=== PATIENT | female | born 1995 | race Caucasian/White ===

== ENCOUNTER 2021-06-01 12:05 | Emergency (ER) | payer MEDICAID, SELFPAY ==
[2021-06-01 13:11] VITALS: BP 107/65; PULSE 79; RESP 18; TEMP 36.6; O2SAT 98; BMI 22.6
[2021-06-01 13:28] LABS: Appearance Urine CLEAR; Color Urine YELLOW; Glucose Urine UA NEG (NEG); Leukocyte Esterase Urine NEG (NEG); Nitrite Urine NEG (NEG); Urine Blood NEG (NEG); Urine Ketones NEG (NEG); Urine Protein NEG (NEG-TRACE)
--- NOTE | 2021-06-01 13:37 | ED.BACK ---
HPI - Back Pain/Injury General Chief Complaint: Back Pain/Injury Stated Complaint: Low Back Pain Time Seen by Provider: 06/01/21 13:37 Source: patient Mode of arrival: ambulatory Limitations: no limitations History of Present Illness HPI Narrative: Patient is a 26 year old female presenting to the emergency department today with low back pain. Patient states that she is a [employer] and starting the other night, she began to have low back pain. Patient states that she does not remember lifting or moving anything differently. Patient denies any radiation of the pain and describes it as a tight sensation. Patient denies any dizziness, lightheadedness, abdominal pain, nausea, vomiting, fever, chills, blurry vision, double vision, loss of vision, chest pain, difficulty breathing, shortness of breath, night sweats, pain with urination, increased urinary frequency, increased urinary urgency, blood in her urine or stool, syncope or a near syncopal episode, recent trauma or falls, bowel incontinence, bladder incontinence, bowel retention, bladder retention, or any other complaints at this time. MD elicited complaint: back pain Timing: intermittent Severity: mild Quality: dull Location: lumbar spine Radiation: none Exacerbating factors: movement Relieving factors: none Related Data Previous Rx's Medication Instructions Recorded cyclobenzaprine 10 mg tablet 10 mg PO TID PRN 7 Days #21 tab 06/01/21 Allergies Allergy/AdvReac Type Severity Reaction Status Date / Time No Known Allergies Allergy Unverified 12/26/19 16:14 Review of Systems Constitutional: Constitutional: Reports no additional constitutional complaints, Denies chills, Denies fever(s) and Denies night sweats Eyes: Eyes: Reports no additional eye complaints, Denies blurry vision, Denies change in vision, Denies diplopia, Denies eye discharge, Denies loss of vision and Denies eye pain ENT: Denies dizziness Cardiovascular: Cardiovascular: Reports no additional cardiovascular complaints, Denies chest pain, Denies lightheadedness, Denies Loss of Consciousness and Denies dyspnea Respiratory: Respiratory: Reports no additional respiratory complaints and Denies dyspnea Gastrointestinal: Gastrointestinal: Reports no additional gastrointestinal complaints, Denies abdominal pain, Denies melena, Denies hematochezia, Denies change in bowel habits and Denies change in stool character Genitourinary: Genitourinary: Denies hematuria, Denies urinary frequency, Denies dysuria, Denies urinary incontinence, Denies urinary hesitancy and Denies urinary urgency Musculoskeletal: Musculoskeletal: Reports no additional musculoskeletal complaints, Reports back pain, Denies numbness and Denies tingling Neurologic: Denies dizziness, Denies loss of vision, Denies numbness and Denies tingling Psychiatric: Psychiatric: Reports no additional psychiatric complaints Endocrine: Endocrine: Reports no additional endocrine complaints Hematologic/Lymphatic: Hematologic/Lymphatic: Reports no additional hematologic/lymphatic complaints Allergic/Immunologic: Allergic/Immunologic: Reports no additional allergic/immunologic complaints [facility] Past Medical History Attestation statement: The following information was validated with the patient. Source: old records reviewed Medical History No known health problems Social History Social History Advance Directives: No Advance Directives Information Provided: No Patient : No Physical Exam Vital Signs: Vital Signs: Last Vital Signs Temp 98 F 06/01/21 13:11 Pulse 79 06/01/21 13:11 Resp 18 06/01/21 13:11 BP 107/65 06/01/21 13:11 Pulse Ox 98 06/01/21 13:11 BMI result Body Mass Index 22.6 Const: General: cooperative, no acute distress, alert and awake Nutritional Appearance: well nourished Orientation/consciousness: patient oriented x3 Limitations: no limitations HENMT: Head: Yes normal to inspection and Yes atraumatic Ears: hearing grossly normal bilaterally and external ears normal General nose exam: Normal external nose present, no nasal discharge noted and no epistaxis Face and sinus: Yes normal facial exam, No abrasion and No laceration Mouth: Normal oral and palatal mucosa present, no drooling and no muffled voice Eyes: General: appearance normal, both eyes and all related structures Periorbital: periorbital findings normal Eyelids: Yes eyelids normal Conjunctivae: conjunctivae normal Pupils: Equal, round and reactive pupils present EOM: EOMs intact bilaterally Neck: Neck: Yes normal visual inspection, Yes full ROM and Yes no lymphadenopathy Chest: Chest palpation & inspection: normal inspection of the chest Resp: Effort & Inspection: normal respiratory effort and able to speak in complete sentences GI: Inspection: Yes normal to inspection Back/Spine/Pelvis: Thoracic/Lumbar Spine: thoracic and lumbar spine normal to inspection, thoraco-lumbar ROM normal and straight leg raise negative bilaterally Neuro: General: patient oriented x3 and moves all extremities Cranial nerves: Yes Equal, round and reactive pupils present Cognition (Neuro): normal cognition Motor exam (neuro): 5/5 motor strength present throughout Sensory Exam: Normal double simultaneous stimulation for sensation Coordination: [id number] test normal Extrem: General: Yes normal to inspection, Yes full ROM and Yes capillary refill normal Psych: Appearance: grossly normal Mental Status: mental status grossly normal Affect: normal affect Attitude: cooperative Thought process: Normal thought process present Thought content: Normal thought content present Insight: Good insight present (Psych) MDM - Back Pain/Injury MDM Narrative Medical decision making narrative: Patient is a 26 year old female presenting to the emergency department today with low back pain. Patient's physical exam was unremarkable. Patient's urine showed no acute process. I explained my physical exam findings as well as all test results to the patient. I answered all questions asked by the patient. Patient received PO Flexeril and IM Toradol which she stated helped her symptoms significantly. I stressed the importance of the patient taking her medication as prescribed. I stressed the importance of the patient following up with her primary care provider. I stressed the importance of the patient returning to the emergency department immediately if her symptoms were to worsen or if she were to develop any vaginal discharge, vaginal bleeding, numbness, tingling, dizziness, shortness of breath, difficulty breathing, chest pain, blurry vision, loss of vision, nausea, vomiting, abdominal pain, fever, chills, back pain, or any other complaints. Patient verbalized agreement and understanding with this treatment plan and discharge. Differential Diagnosis Differential diagnosis: Likely strain of lumbar region Medical Records Attestation: I reviewed the patient's medical records. Lab Data Attestation: I reviewed the patient's lab results. Labs: Lab Results 06/01/21 Range/Units 13:23 Urine Color YELLOW Urine Appearance CLEAR Urine pH 7.0 (5.0-8.0) Ur Specific [place] 1.010 (1.005-1.025) Urine Protein NEG (NEG-TRACE) MG/DL Urine Glucose (UA) NEG (NEG) MG/DL Urine Ketones NEG (NEG) MG/DL Urine Blood NEG (NEG) Urine Nitrite NEG (NEG) Ur Leukocyte Esterase NEG (NEG) Discharge Plan Discharge Clinical Impression: Strain of lumbar region Patient Disposition: Home, Self-Care Instructions: Low Back Strain (ED) Additional Instructions: Follow up with your primary care provider. Return to the emergency department immediately if your symptoms worsen or if you develop any dizziness, shortness of breath, difficulty breathing, chest pain, blurry vision, loss of vision, nausea, vomiting, abdominal pain, fever, chills, back pain, or any other complaints. Prescriptions: New cyclobenzaprine 10 mg tablet 10 mg PO TID PRN (Reason: muscle spasm) 7 Days Qty: 21 0RF Referrals: Nikko Dumas MD [Primary Care Provider] - 2 days Interventions: ED Discharge Assessment Last Done: 06/01/21 14:32 Print Language: Georgian
[2021-06-01] MEDS: Ketorolac Tromethamine 30 MG/ML VIAL IM (14:08)
[2021-06-01] MEDS: Cyclobenzaprine HCl 10 MG TABLET PO (14:09)
== END 2021-06-01 14:32 | disposition home or self-care (01) ==
PROVIDERS: Emergency Provider Emergency Medicine; PCP Internal Medicine
DX: S39.012A Strain of muscle, fascia and tendon of lower back, initial encounter (principal); X58.XXXA Exposure to other specified factors, initial encounter; Y93.9 Activity, unspecified; Y92.9 Unspecified place or not applicable; Y99.9 Unspecified external cause status
CPT/HCPCS: 81003; 96372; 99284; J1885

== ENCOUNTER 2022-01-21 21:57 | Emergency (ER) | payer MEDICAID, SELFPAY ==
[2022-01-21 22:04] VITALS: BP 132/66; PULSE 76; RESP 18; TEMP 36.6; O2SAT 98; BMI 22.6
[2022-01-21 22:33] LABS: MANUAL DIFF FLAG NO
[2022-01-21 22:36] LABS: Basophils Absolute Auto 0.1 X10*3/uL (0.0-0.2); Basophils Percent Auto 0.7 % (0-2); Eosinophils Absolute Auto 0.1 X10*3/uL (0.0-0.4); Eosinophils Percent Auto 1.2 % (0-4); Hematocrit 37.4 % (37.0-47.0); Hemoglobin 12.3 g/dl (12.0-16.0); Imm Gran Abs Auto 0.02 X10*3/uL (0.00-0.03); Imm Gran Pct Auto 0.3 % (0.0-0.4); Lymphocytes Absolute Auto 2.1 X10*3/uL (1.2-4.9); Lymphocytes Percent Auto 28.6 % (20-40); Mean Corpuscular HGB Conc 32.9 g/dl (31.0-35.0); Mean Corpuscular Hemoglobin 31.2 pg (27.0-33.0); Mean Corpuscular Volume 94.9 fL (80.0-98.0); Monocytes Absolute Auto 0.8 X10*3/uL (0.1-1.2); Monocytes Percent Auto 10.3 % (2-11); Neutrophils Absolute Auto 4.4 x10*3/uL (2.0-8.3); Neutrophils Percent Auto 58.9 % (45-73); Platelet Count 337 X10*3/uL (160-400); Red Blood Count 3.94 X10*6/uL (4.20-5.50); Red Cell Distribution Width 12.6 % (11.0-16.0); White Blood Count 7.5 X10*3/uL (4.8-10.8)
[2022-01-21 22:48] LABS: Appearance Urine Cloudy; Color Urine Yellow; Glucose Urine UA Negative (Negative); Leukocyte Esterase Urine Trace (Negative); Nitrite Urine Negative (Negative); PH 7.5 (5.0-9.0); UMIC TRIGGER UACC YES; Urine Blood Large (3+) (Negative); Urine Ketones Negative (Negative); Urine Protein Negative (Neg-Trace)
[2022-01-21 22:53] LABS: Alanine Aminotransferase 12 U/L (0-31); Albumin Level 4.7 g/dL (3.5-5.0); Alkaline Phosphatase 59 U/L (39-117); Anion Gap 13 (12-20); Aspartate Amino Transferase 16 U/L (5-31); Bilirubin Direct < 0.2 mg/dL (0.0-0.5); Bilirubin Total 0.3 mg/dL (0.0-1.0); Blood Urea Nitrogen 10 mg/dL (9-16); Calcium 9.5 mg/dL (8.4-10.2); Carbon Dioxide 26 mmol/L (22-29); Chloride 104 mmol/L (96-108); Creatinine Clr Calc Pharmacy 87.7; Estimated Glomerular Filt Rate > 60; Glucose Random 86 mg/dL (60-115); Potassium 4.2 mmol/L (3.3-5.1); Sodium 139 mmol/L (135-145); Total Protein 7.6 g/dL (6.5-8.0)
[2022-01-21 23:01] LABS: HCG Quantitative 738 mIU/mL
[2022-01-21 23:05] LABS: Bacteria Urine None Seen (None Seen); Hyaline Casts Urine 0-2 /LPF (0-2); UACC Culture Trigger YES
[2022-01-22 01:07] VITALS: BP 116/69; PULSE 73; RESP 18; TEMP 36.4; O2SAT 99
--- OUTSIDE RECORDS SUMMARY | 2022-01-22 01:24 | XMS_ITS | Continuity of Care Document ---
:1995 Author Organization [facility] Address [address] [place] [address]- Care Team Providers Name Role Phone Piter DELANEY, Nikko Brownlee Primary Care Physician Encounter [facility] Date(s): 08/10/21 - 09/09/[address] [address]- Allergies, Adverse Reactions, Alerts No Known Allergies Immunizations Given and Recorded Vaccine Date Status Refusal Reason SARS-CoV-2 mRNA (summer) vax 05/18/21 Given
--- OUTSIDE RECORDS SUMMARY | 2022-01-22 01:24 | XMS_ITS | Continuity of Care Document ---
:1995 Author Organization [facility] Address [address] [place] [address]- Care Team Providers Name Role Phone Piter DELANEY, Nikko Brownlee Primary Care Physician [phone] Encounter [facility] Date(s): 08/09/21 - 09/08/[address] [address] Attending Physician: Antonieta Helm Admitting Physician: Antonieta Helm Referring Physician: AdmtrAntonieta Allergies, Adverse Reactions, Alerts No Known Allergies Immunizations Given and Recorded Vaccine Date Status Refusal Reason SARS-CoV-2 mRNA ([id number]) vax 05/18/21 Given
--- OUTSIDE RECORDS SUMMARY | 2022-01-22 01:24 | XMS_ITS | Continuity of Care Document ---
:1995 Author Organization [facility] Address [address] [place] [address]- Care Team Providers Name Role Phone Piter DELANEY, Nikko Brownlee Primary Care Physician Encounter [facility] Date(s): 12/02/19 - 01/01/[address] [address]- [facility] Attending Physician: Antonieta Helm Admitting Physician: Antonieta Helm Referring Physician: Antonieta Helm
--- OUTSIDE RECORDS SUMMARY | 2022-01-22 01:24 | XMS_ITS | Continuity of Care Document ---
:1995 Author Organization [facility] Address [address] [place] [address]- Care Team Providers Name Role Phone Piter DELANEY, Nikko Brownlee Primary Care Physician Encounter [facility] Date(s): 07/21/21 - 09/08/[address] [address] Attending Physician: Not on Staff, Attending MD Allergies, Adverse Reactions, Alerts No Known Allergies Immunizations Given and Recorded Vaccine Date Status Refusal Reason SARS-CoV-2 mRNA (summer) vax 05/18/21 Given
--- OUTSIDE RECORDS SUMMARY | 2022-01-22 01:24 | XMS_ITS | Continuity of Care Document ---
:1995 Author Organization [facility] Address [address] [place] [address]- Care Team Providers Name Role Phone Piter DELANEY, Nikko Brownlee Primary Care Physician [phone] Encounter [facility] Date(s): 04/15/19 - 04/25/[address] [address]- [facility] Attending Physician: Antonieta Helm Admitting Physician: Antonieta Helm Referring Physician: Antonieta Helm Referring Physician: Joann Trammell
--- OUTSIDE RECORDS SUMMARY | 2022-01-22 01:25 | XMS_ITS | Continuity of Care Document ---
:1995 Author Organization [facility] Address [address] [place] [address]- Care Team Providers Name Role Phone Piter DELANEY, Nikko Brownlee Primary Care Physician Encounter [facility] Date(s): 06/03/21 - 10/01/[address] [address]- Attending Physician: Teri Shultz CNM Admitting Physician: Teri Shultz CNM Allergies, Adverse Reactions, Alerts No Known Allergies Immunizations Given and Recorded Vaccine Date Status Refusal Reason SARS-CoV-2 mRNA (summer) vax 05/18/21 Given
--- OUTSIDE RECORDS SUMMARY | 2022-01-22 01:25 | XMS_ITS | Continuity of Care Document ---
:1995 Author Organization [facility] ic Address [address] [place] [address]- Care Team Providers Name Role Phone Piter DELANEY, Nikko Brownlee Primary Care Physician Encounter [facility] Date(s): 06/11/19 - 06/21/[address] [address]- [facility] Attending Physician: Antonieta Helm Admitting Physician: Antonieta Helm Referring Physician: Antonieta Helm
--- OUTSIDE RECORDS SUMMARY | 2022-01-22 01:25 | XMS_ITS | Continuity of Care Document ---
:1995 Author Organization [facility] ic Address [address] [place] [address]- Care Team Providers Name Role Phone Piter DELANEY, Nikko Brownlee Primary Care Physician [phone] Encounter [facility] Date(s): 04/15/19 - 06/06/[address] [address]- [facility] Attending Physician: Not on Staff, Attending MD Referring Physician: Nikko Dumas MD
--- OUTSIDE RECORDS SUMMARY | 2022-01-22 01:25 | XMS_ITS | Continuity of Care Document ---
:1995 Author Organization [facility] Address [address] [place] [address]- Care Team Providers Name Role Phone Piter DELANEY, Nikko Brownlee Primary Care Physician Encounter [facility] Date(s): 07/20/21 - 08/19/[address] [address]- Allergies, Adverse Reactions, Alerts No Known Allergies Immunizations Given and Recorded Vaccine Date Status Refusal Reason SARS-CoV-2 mRNA (summer) vax 05/18/21 Given
--- OUTSIDE RECORDS SUMMARY | 2022-01-22 01:25 | XMS_ITS | Continuity of Care Document ---
:1995 Author Organization [facility] ic Address [address] [place] [address]- Care Team Providers Name Role Phone Piter DELANEY, Nikko Brownlee Primary Care Physician Encounter [facility] Date(s): 05/14/19 - 07/11/[address] [address]- [facility] Attending Physician: Not on Staff, Attending MD Referring Physician: Nikko Dumas MD
--- OUTSIDE RECORDS SUMMARY | 2022-01-22 01:25 | XMS_ITS | Continuity of Care Document ---
:1995 Author Organization [facility] Address [address] [place] [address]- Care Team Providers Name Role Phone Piter DELANEY, Nikko Brownlee Primary Care Physician Encounter [facility] Date(s): 06/10/21 - 08/18/[address] [address] Attending Physician: Not on Staff, Attending MD Allergies, Adverse Reactions, Alerts No Known Allergies Immunizations Given and Recorded Vaccine Date Status Refusal Reason SARS-CoV-2 mRNA (summer) vax 05/18/21 Given
--- OUTSIDE RECORDS SUMMARY | 2022-01-22 01:25 | XMS_ITS | Continuity of Care Document ---
:1995 Author Organization [facility] ic Address [address] [place] [address]- Care Team Providers Name Role Phone Piter DELANEY, Nikko Brownlee Primary Care Physician Encounter [facility] Date(s): 01/15/19 - 05/15/[address] [address]- [facility] Attending Physician: Not on Staff, Attending MD Referring Physician: Gt Gusman MD
--- OUTSIDE RECORDS SUMMARY | 2022-01-22 01:25 | XMS_ITS | Continuity of Care Document ---
:1995 Author Organization [facility] Address [address] [place] [address]- Care Team Providers Name Role Phone Piter DELANEY, Nikko Brownlee Primary Care Physician Encounter [facility] Date(s): 11/01/19 - 12/01/19 [facility] [address] [address]- [facility]
--- NOTE | 2022-01-22 01:30 | PC.NURSE ---
Pt aox4. VSS. Breath are even and unlabored. Abd soft and nontender. Normal skin tone. Reports intermittent vaginal bleeding and no bleeding at this time. Positive Clear Blue test two days ago.
--- NOTE | 2022-01-22 02:12 | ED.FEMALEGU ---
HPI - Female Genitourinary General Chief complaint: Vaginal Bleeding Stated complaint: Spotting, Time Seen by Provider: 01/22/22 02:11 Source: patient Mode of arrival: ambulatory Limitations: no limitations History of Present Illness HPI Narrative: Patient 1 found that she was 2 days ago had LMP 2 weeks ago and then started having spotting since then already made the appointment at [facility] comes here as still having spotting no blood clots no abdominal discomfort Related Data Previous Rx's Medication Instructions Recorded cyclobenzaprine 10 mg tablet 10 mg PO TID PRN muscle spasm 7 06/01/21 days #21 tabs Allergies Allergy/AdvReac Type Severity Reaction Status Date / Time No Known Allergies Allergy Verified 01/21/22 22:09 Review of Systems Review of Systems: Yes all other systems are reviewed and are negative [facility] Past Medical History Medical History No known health problems Social History Social History Patient Tobacco Use Status: Never used Tobacco Use of substances other than those prescribed or required for medical reasons: No Substance Use Type: Marijuana Advance Directives: No Advance Directives Information Provided: Yes Patient : Yes Physical Exam Vital Signs: Vital Signs: Last Vital Signs Temp 97.6 F 01/22/22 01:07 Pulse 73 01/22/22 01:07 Resp 18 01/22/22 01:07 BP 116/69 01/22/22 01:07 Pulse Ox 99 01/22/22 01:07 O2 Del Method 01/22/22 01:07 BMI result Body Mass Index 22.6 Appearance: Alert. Oriented X3. No acute distress. ENT: Pharynx normal. Oral Mucosa moist Neck: Normal inspection. Neck supple. CVS: Normal heart rate and rhythm. Pulses normal. Respiratory: No respiratory distress. Equal air entry bilateral, no wheezing/rales/rhonchi Abdomen: Soft and nontender. Bowel sounds are present, no mass palpable, no CVA tenderness Skin: Skin warm and dry. Normal skin color. Normal skin turgor. Extremities: No lower extremity edema. No calf tenderness Neuro: Oriented X 3. No motor deficit. No sensory deficit. MDM - Female Genitourinary MDM Narrative Medical decision making narrative: Patient hCG 738 no discomfort at this time no major bleeding. Unable to see IUP if it is less than 1000 and there is no indication for ultrasound as patient does not have any discomfort and bleeding is very mild. Patient is supposed to see [facility]. Patient advised to repeat HCG in 2 days Lab Data Attestation: I reviewed the patient's lab results. Result diagrams: 01/21/22 22:01/21/22 22:28 Labs: Lab Results 01/21/22 01/21/22 01/21/22 Range/Units 22:28 22: 22: WBC 7.5 (4.8-10.8) X10*3/uL RBC 3.94 L (4.20-5.50) X10*6/uL Hgb 12.3 (12.0-16.0) g/dl Hct 37.4 (37.0-47.0) % MCV 94.9 (80.0-98.0) fL MCH 31.2 (27.0-33.0) pg MCHC 32.9 (31.0-35.0) g/dl RDW 12.6 (11.0-16.0) % Plt Count 337 (160-400) X10*3/uL MPV 10.0 (9.4-12.3) fL Immature Gran % (Auto) 0.3 (0.0-0.4) % Neut % (Auto) 58.9 (45-73) % Lymph % (Auto) 28.6 (20-40) % Parmer % (Auto) 10.3 (2-11) % Eos % (Auto) 1.2 (0-4) % Baso % (Auto) 0.7 (0-2) % Lymph # (Auto) 2.1 (1.2-4.9) X10*3/uL Parmer # (Auto) 0.8 (0.1-1.2) X10*3/uL Eos # (Auto) 0.1 (0.0-0.4) X10*3/uL Baso # (Auto) 0.1 (0.0-0.2) X10*3/uL Abs Immat Gran (auto) 0.02 (0.00-0.03) X10*3/uL Absolute Neuts (auto) 4.4 (2.0-8.3) x10*3/uL Absolute Nucleated RBC 0.000 (0.0-0.012) X10*3/uL Nucleated RBC % (auto) 0.0 (0.0-0.2) /100WBC Sodium 139 (135-145) mmol/L Potassium 4.2 (3.3-5.1) mmol/L Chloride 104 (96-108) mmol/L Carbon Dioxide 26 (22-29) mmol/L Anion Gap 13 (12-20) BUN 10 (9-16) mg/dL Creatinine 0.72 (0.5-1.4) mg/dL Estim Creat Clear Calc 87.7 Estimated GFR > 60 Random Glucose 86 (60-115) mg/dL Calcium 9.5 (8.4-10.2) mg/dL Total Bilirubin 0.3 (0.0-1.0) mg/dL Direct Bilirubin < 0.2 (0.0-0.5) mg/dL AST 16 (5-31) U/L ALT 12 (0-31) U/L Alkaline Phosphatase 59 (39-117) U/L Total Protein 7.6 (6.5-8.0) g/dL Albumin 4.7 (3.5-5.0) g/dL Beta HCG, Quant 738 mIU/mL Urine Color Urine Appearance Urine pH (5.0-9.0) Ur Specific [place] (1.005-1.025) Urine Protein (Neg-Trace) mg/dL Urine Glucose (UA) (Negative) mg/dL Urine Ketones (Negative) mg/dL Urine Blood (Negative) Urine Nitrite (Negative) Ur Leukocyte Esterase (Negative) Urine RBC (0-2) /HPF Urine WBC (0-5) /HPF Ur Squamous Epith Cells (0-2) /HPF Urine Bacteria (None Seen) Hyaline Casts (0-2) /LPF Blood Type O Negative 01/21/22 Range/Units 22:41 WBC (4.8-10.8) X10*3/uL RBC (4.20-5.50) X10*6/uL Hgb (12.0-16.0) g/dl Hct (37.0-47.0) % MCV (80.0-98.0) fL MCH (27.0-33.0) pg MCHC (31.0-35.0) g/dl RDW (11.0-16.0) % Plt Count (160-400) X10*3/uL MPV (9.4-12.3) fL Immature Gran % (Auto) (0.0-0.4) % Neut % (Auto) (45-73) % Lymph % (Auto) (20-40) % [place] % (Auto) (2-11) % Eos % (Auto) (0-4) % Baso % (Auto) (0-2) % Lymph # (Auto) (1.2-4.9) X10*3/uL [place] # (Auto) (0.1-1.2) X10*3/uL Eos # (Auto) (0.0-0.4) X10*3/uL Baso # (Auto) (0.0-0.2) X10*3/uL Abs Immat Gran (auto) (0.00-0.03) X10*3/uL Absolute Neuts (auto) (2.0-8.3) x10*3/uL Absolute Nucleated RBC (0.0-0.012) X10*3/uL Nucleated RBC % (auto) (0.0-0.2) /100WBC Sodium (135-145) mmol/L Potassium (3.3-5.1) mmol/L Chloride (96-108) mmol/L Carbon Dioxide (22-29) mmol/L Anion Gap (12-20) BUN (9-16) mg/dL Creatinine (0.5-1.4) mg/dL Estim Creat Clear Calc Estimated GFR Random Glucose (60-115) mg/dL Calcium (8.4-10.2) mg/dL Total Bilirubin (0.0-1.0) mg/dL Direct Bilirubin (0.0-0.5) mg/dL AST (5-31) U/L ALT (0-31) U/L Alkaline Phosphatase (39-117) U/L Total Protein (6.5-8.0) g/dL Albumin (3.5-5.0) g/dL Beta HCG, Quant mIU/mL Urine Color Yellow Urine Appearance Cloudy Urine pH 7.5 (5.0-9.0) Ur Specific [place] 1.020 (1.005-1.025) Urine Protein Negative (Neg-Trace) mg/dL Urine Glucose (UA) Negative (Negative) mg/dL Urine Ketones Negative (Negative) mg/dL Urine Blood Large (3+) H (Negative) Urine Nitrite Negative (Negative) Ur Leukocyte Esterase Trace H (Negative) Urine RBC 3-5 H (0-2) /HPF Urine WBC 6-10 H (0-5) /HPF Ur Squamous Epith Cells 3-5 (0-2) /HPF Urine Bacteria None Seen (None Seen) Hyaline Casts 0-2 (0-2) /LPF Blood Type Discharge Plan Discharge Clinical Impression: Threatened Patient Disposition: Home, Self-Care Instructions: Threatened Miscarriage (ED) Additional Instructions: Your hCG count is 738 which should increase if normal Recheck blood in 2 days to check HCG level Report to the ER if increased vaginal bleeding Prescriptions: No Action cyclobenzaprine 10 mg tablet 10 mg PO TID PRN (Reason: muscle spasm) 7 Days Qty: 21 0RF Interventions: ED Discharge Assessment Last Done: 01/22/22 03:10 Discharge Date/Time: 01/22/22 03:10
--- NOTE | 2022-01-22 03:11 | PC.NURSE ---
Discharge instructions provided to pt. Pt verbalizes understanding.
== END 2022-01-22 03:10 | disposition home or self-care (01) ==
PROVIDERS: Emergency Medicine; Emergency Provider Internal Medicine; PCP Nurse Practitioner Primary Care
DX: O20.0 Threatened abortion (principal); Z3A.01 Less than 8 weeks gestation of pregnancy
CPT/HCPCS: 36415; 80048; 80076; 81001; 84702; 85025; 86900; 86901; 87086; 99283; 99284

== ENCOUNTER 2022-01-25 12:01 | Emergency (ER) | payer MEDICAID, SELFPAY ==
--- NOTE | ~2022-01-25 | US_ITS ---
EXAMINATION: US OBSTETRICAL ULTRASOUND CLINICAL INFORMATION: Vaginal bleeding, rule out miscarriage. Beta hCG 637 COMPARISON: None. LMP: Unknown. TECHNIQUE: Multiple 2-D grayscale and Doppler transabdominal ultrasound images of the abdomen were obtained. FINDINGS: Uterus: Anteverted/anteflexed measuring 8.8 x 4.1 x 5.1 cm. Endometrial stripe measures up to 2.8 cm with internal heterogeneous echogenic material filling the canal. No gestational sac is identified. Color Doppler showed no significant vascular flow. The cervix appears closed without abnormality. No significant free fluid in the cul-de-sac. Right ovary: 4.2 x 3.9 x 4.2 cm. An anechoic cyst measures 3.4 x 3.0 x 2.9 cm. Minimal adjacent anechoic fluid is seen. Color Doppler showed no abnormal vascular flow. Left ovary: 3.9 x 3.8 x 3.7 cm. A cyst with internal echoes measures 3.2 x 2.7 x 3.1 cm. Small adjacent anechoic fluid is seen. Color Doppler showed no abnormal vascular flow. Urinary bladder: Mild to moderately distended. No focal abnormality. US/US OB <= 14 weeks fetus IMPRESSION: 1. No intrauterine or extrauterine gestation identified. Increased thickening of the endometrium without definitive basilar components suggestive of possible hemorrhagic products without focal abnormality. No definitive retained products of conception. 2. Bilateral ovarian cysts are likely physiologic. Continued monitoring of beta-hCG levels is recommended. Short-term follow-up pelvic ultrasound is recommended as clinically indicated.
[2022-01-25 12:09] VITALS: BP 150/93; PULSE 85; RESP 16; TEMP 36.6; O2SAT 100; BMI 22.1
[2022-01-25 12:37] LABS: MANUAL DIFF FLAG NO
[2022-01-25 12:48] LABS: Basophils Percent Auto 0.5 % (0-2); Eosinophils Absolute Auto 0.1 X10*3/uL (0.0-0.4); Eosinophils Percent Auto 0.8 % (0-4); Hematocrit 35.9 % (37.0-47.0); Hemoglobin 12.6 g/dl (12.0-16.0); Imm Gran Abs Auto 0.02 X10*3/uL (0.00-0.03); Imm Gran Pct Auto 0.3 % (0.0-0.4); Lymphocytes Absolute Auto 1.8 X10*3/uL (1.2-4.9); Lymphocytes Percent Auto 27.5 % (20-40); Mean Corpuscular HGB Conc 35.1 g/dl (31.0-35.0); Mean Corpuscular Hemoglobin 33.4 pg (27.0-33.0); Mean Corpuscular Volume 95.2 fL (80.0-98.0); Mean Platelet Volume 10.5 fL (9.4-12.3); Monocytes Absolute Auto 0.7 X10*3/uL (0.1-1.2); Monocytes Percent Auto 9.9 % (2-11); Platelet Count 299 X10*3/uL (160-400); Red Blood Count 3.77 X10*6/uL (4.20-5.50); Red Cell Distribution Width 12.9 % (11.0-16.0); White Blood Count 6.6 X10*3/uL (4.8-10.8)
[2022-01-25 13:05] LABS: HCG Quantitative 637 mIU/mL
--- NOTE | 2022-01-25 14:41 | ED.RECABL ---
HPI - Recheck/Abnormal Lab/Rx General Chief Complaint: Recheck/Abnormal Lab/Rx Stated Complaint: Needs HCG levels checked Time Seen by Provider: 01/25/22 14:21 Source: patient Mode of arrival: ambulatory Limitations: no limitations History of Present Illness HPI narrative: This is a 26 year old female A0 presenting to the emergency department for follow-up after having hCG levels done here in being told that she may be having a threatened . Reports light vaginal bleeding dark red w/o clots going through 1-2 pads/day. Patient was seen here 01/22/2022 and reported that she was having vaginal spotting. Patient reports her last menstrual period was 2 weeks ago. Patient's last HCG was 738. Patient tells me that she did not have an ultrasound at that time. Patient denies fevers, chills, chest pain, shortness of breath nausea, vomiting, abdominal pain headache, dizziness, weakness. Related Data Previous Rx's Medication Instructions Recorded cyclobenzaprine 10 mg tablet 10 mg PO TID PRN muscle spasm 7 06/01/21 days #21 tabs Allergies Allergy/AdvReac Type Severity Reaction Status Date / Time No Known Allergies Allergy Verified 01/21/22 22:09 Review of Systems Review of Systems: Constitutional : No Weight loss, No Fever, No Chills, No Fatigue, No Malaise ENT/Mouth : No sore throat, No Rhinorrhea Eyes: No Eye Pain, No Swelling, No Redness Cardiovascular : No Chest Pain, No SOB, No Dyspnea on Exertion, No Orthopnea, No Edema, No Palpitations Respiratory : No Cough, No Sputum, No Wheezing Gastrointestinal : No Nausea, No Vomiting, No Diarrhea, No Constipation, No abdominal Pain, No Hematochezia, No Melena Genitourinary : No Dysuria, No Urinary Frequency, No Hematuria, Musculoskeletal : No joint pain, No Myalgias, No Joint Swelling Skin : No Skin Lesions, No rash Neuro : No Weakness, No Numbness, No Dizziness, No Headache Psych : No Anxiety/Panic, No Depression All other systems reviewed and are negative Yes all other systems are reviewed and are negative [facility] Past Medical History Attestation statement: The following information was validated with the patient. Source: old records reviewed and nursing notes reviewed Medical History No known health problems Social History Social History Patient Tobacco Use Status: Never used Tobacco Substance Use Type: Marijuana Advance Directives: No Physical Exam Vital Signs: Vital Signs: Last Vital Signs Temp 98.1 F 01/25/22 16:08 Pulse 71 01/25/22 16:08 Resp 18 01/25/22 16:08 BP 139/81 01/25/22 16:08 Pulse Ox 97 01/25/22 16:08 O2 Del Method 01/25/22 16:08 BMI result Body Mass Index 22.1 Vital signs stable Appearance: Alert.? Oriented X3.? No acute distress.? Head: Normocephalic, atraumatic, no step-offs or deformities Eyes: Pupils equal, round and reactive to light.? ENT: Pharynx normal.? Neck: Normal inspection.? Neck supple.? CVS: Normal heart rate and rhythm.? Pulses normal.? Respiratory: No respiratory distress.? Breath sounds normal.? Abdomen: Soft and nontender.? Skin: Skin warm and dry.? Normal skin color.? Normal skin turgor.? Extremities: No lower extremity edema.? No calf ttp. 5/5 strength to bilateral upper and lower extremities Neuro: Oriented X 3.? No motor deficit.? No sensory deficit. CN 2-12 intact Course Reevaluation(s) Reevaluation #1: Patient has not changed her pad while here. CBC appears to be around patients baseline. Chemistry no acute findings. HCG down trending 637. Pelvic us pending. 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 TT Dr. Singh Time: 15:40 Reevaluation #2: Ultrasound without an intrauterine or extrauterine gestation. Increased thickening of the endometrium without definitive basilar components suggestive of possible hemorrhagic products without focal abnormality. I did perform a pelvic exam on this patient it shows scant blood within the vaginal canal, closed cervical os, nonpainful exam, patient tolerated procedure well. Negative chandelier sign. No pain with palpation. Dr. Singh be aware, recommend strict return precautions, RhoGAM if antibody screen is negative. Recommends as a be/ectopic warnings. If ultrasound is normal hCG in 48 hours and follow up in the office. Time: 16:00 Reevaluation #3: Patient blood type O negative therefore RhoGAM will be given at this time. Suspected miscarriage. Will have patient get repeat hCG in 48 hours and follow-up with OBGYN. Patient tells me now that she does not think she actually has a OBGYN therefore I will provide her with information for Dr. Singh. I did have a long conversation with patient explained to her that she is likely miscarrying, answered all questions, I took the time to outlined worrisome signs and symptoms and when to return, these were outlined on her discharge. At this time I feel comfortable discharge home with prompt PCP and OBGYN follow-up. Patient verbalizes understanding of all this, tells me she will return with new or worsening symptoms. Comfortable discharge MDM - Recheck/Abnormal Lab/Rx MDM Narrative Medical decision making narrative: [id number] 26-year-old female presents for repeat hCG level, patient seen urine on 01/22/2022 and was told she may be having a threatened due to vaginal spotting during . Patients hCG level at that time was 738 Was told to return today to have repeat hCG. At that time no ultrasound was done. Physical examination benign. Patient appears well, nontoxic. Vital signs stable, hemodynamically stable. Concerns for miscarriage. Will rule out ectopic although less likely. Plan at this time is to obtain repeat hCG and obtain pelvic and transvaginal ultrasound. Medical Records Attestation: I reviewed the patient's medical records. Lab Data Attestation: I reviewed the patient's lab results. Result diagrams: 01/25/22 12:15 Labs: Lab Results 01/25/22 01/25/22 01/25/22 Range/Units 12:15 12:15 14:58 WBC 6.6 (4.8-10.8) X10*3/uL RBC 3.77 L (4.20-5.50) X10*6/uL Hgb 12.6 (12.0-16.0) g/dl Hct 35.9 L (37.0-47.0) % MCV 95.2 (80.0-98.0) fL MCH 33.4 H (27.0-33.0) pg MCHC 35.1 H (31.0-35.0) g/dl RDW 12.9 (11.0-16.0) % Plt Count 299 (160-400) X10*3/uL MPV 10.5 (9.4-12.3) fL Immature Gran % (Auto) 0.3 (0.0-0.4) % Neut % (Auto) 61.0 (45-73) % Lymph % (Auto) 27.5 (20-40) % [place] % (Auto) 9.9 (2-11) % Eos % (Auto) 0.8 (0-4) % Baso % (Auto) 0.5 (0-2) % Lymph # (Auto) 1.8 (1.2-4.9) X10*3/uL [place] # (Auto) 0.7 (0.1-1.2) X10*3/uL Eos # (Auto) 0.1 (0.0-0.4) X10*3/uL Baso # (Auto) 0.0 (0.0-0.2) X10*3/uL Abs Immat Gran (auto) 0.02 (0.00-0.03) X10*3/uL Absolute Neuts (auto) 4.0 (2.0-8.3) x10*3/uL Absolute Nucleated RBC 0.000 (0.0-0.012) X10*3/uL Nucleated RBC % (auto) 0.0 (0.0-0.2) /100WBC Beta HCG, Quant 637 mIU/mL Blood Type O Negative Critical Care Time Critical Care Time Critical Care Time: Yes Total Critical Care Time: 35 Attestation: I attest to this time spent taking care of the patient, obtaining history, physical, reviewing labs, imaging, speaking to my attending, speaking to specialist. Discharge Plan Discharge Clinical Impression: Miscarriage Patient Disposition: Home, Self-Care Instructions: Miscarriage (ED) Additional Instructions: Take your medications as prescribed. If you were prescribed antibiotics today, it is important that you take your medication to their entirety, do not skip any doses, do not finish them early. Follow-up with your primary care provider this week. Please call OBGYN tomorrow to schedule follow-up appointment. Return to the emergency department with new or worsening symptoms. Such as fevers, chills, chest pain, shortness of breath, nausea, vomiting, dizziness, headache, vision changes, lethargy, abdominal pain or cramping, bleeding through more than 2 pads per hour, weakness In case of emergency call 911 OBGYN recommends repeat hCG in 48 hours. US/US OB <= 14 weeks fetus IMPRESSION: 1. No intrauterine or extrauterine gestation identified. Increased thickening of the endometrium without definitive basilar components suggestive of possible hemorrhagic products without focal abnormality. No definitive retained products of conception. 2. Bilateral ovarian cysts are likely physiologic. Continued monitoring of beta-hCG levels is recommended. Short-term follow-up pelvic ultrasound is recommended as clinically indicated. Prescriptions: No Action cyclobenzaprine 10 mg tablet 10 mg PO TID PRN (Reason: muscle spasm) 7 Days Qty: 21 0RF Referrals: Latasha Reilly NP [Primary Care Provider] - 2 days Jayme Singh MD [Physician] - 1 day Stand Alone Forms: Work/School Release
--- NOTE | 2022-01-25 15:52 | P.CONOB_ITS ---
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 The patient is complaining of mild vaginal bleeding , 1-2 pads/day. ?The patient was seen on 01/22/2022 for vaginal spotting, HCG was 738, No ultrasound was done at that time.? 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 - Review of Systems Review of Systems ROS Unobtainable: All systems reviewed & are unremarkable except as noted in HPI and below Cardiovascular: Denies Palpatations, Loss of consciousness or Chest pain Respiratory: Denies Cough, Wheezing or Shortness of breath Musculoskeletal: Denies Low back pain Gastrointestinal: Denies Heartburn, Constipation, Diarrhea, Nausea or Vomiting Genitourinary: Denies Pain with urination, Burning with urination or Urinary frequency Neurological: Denies Migranes Psychological: Denies Depression OB PMFSH Past Medical History Medical History No known health problems Social History Social History Patient Tobacco Use Status: Never used Tobacco Substance Use Type: Marijuana Advance Directives: No Meds Allergies Allergy/AdvReac Type Severity Reaction Status Date / Time No Known Allergies Allergy Verified 01/21/22 22:09 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 Physical Exam Vitals Vital signs: Temp Pulse Resp BP Pulse Ox O2 Del Method 97.8 F 85 16 150/93 H 100 01/25/22 12:09 01/25/22 12:09 01/25/22 12:09 01/25/22 12:09 01/25/22 12:09 01/25/22 12:09 BMI result Body Mass Index 22.1 Constitutional General Appearance: Healthy appearing, Well-nourished and Well-developed Psychiatric Mood and Affect: active and alert, normal mood and normal affect Skin Appearance: No rashes and No lesions Lungs Respiratory Effort: No intercostal retractions Auscultation: Clear to auscultation Cardiovascular Auscultation: RRR Abdomen Auscultation/Inspection/Palpation: Normal bowel sounds, Soft, Non-distended and No tenderness Additional Comments: Physical exam reported by IAN Ramirez Abdominal exam is soft and nontender Pelvic exam showed scant dark blood in the vagina, closed cervix, nontender uterus and/or bilateral adnexa 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 No intrauterine or extrauterine gestation identified. Increased thickening of the endometrium without definitive basilar components suggestive of possible hemorrhagic products without focal abnormality. No definitive retained products of conception. 2. Bilateral ovarian cysts are likely physiologic. Continued monitoring of beta-hCG levels is recommended. Short-term follow-up pelvic ultrasound is recommended as clinically indicated. Assessment and Plan (1) First trimester bleeding: Status: Acute Plan Discussed with IAN Hinkle the following differential diagnosis including but not limited to SAB, ectopic , others. Recommended the following: Since Rh is negative, send for antibody screen, if negative RhoGAM to be given the patient, SAB/ectopic warnings to be given to the patient, instructions to be given to patient to come back to the emergency room in case of heavy vaginal bleeding and/ or a pain, follow-up in the office in 48 hours with hCG quantitative. I spent a total of 20 minutes reviewing the chart, communicating the ER provider and documenting the medical record
[2022-01-25 16:08] VITALS: BP 139/81; PULSE 71; RESP 18; TEMP 36.7; O2SAT 97
[2022-01-25] MEDS: Rho(D) Immune Globulin 300 MCG SYRINGE IM (16:18)
== END 2022-01-25 16:40 | disposition home or self-care (01) ==
PROVIDERS: Emergency Provider Emergency Medicine Emergency Medical Services; PCP Nurse Practitioner Primary Care
DX: O03.9 Complete or unspecified spontaneous abortion without complication (principal); R79.89 Other specified abnormal findings of blood chemistry; Z79.899 Other long term (current) drug therapy
CPT/HCPCS: 36415; 76801; 84702; 85025; 86900; 86901; 96372; 99283; 99284; J2790

== ENCOUNTER 2022-01-27 11:06 | Outpatient (REF) | payer MEDICAID, SELFPAY ==
--- NOTE | ~2022-01-27 | US_ITS ---
EXAMINATION: US OBSTETRICAL ULTRASOUND CLINICAL INFORMATION: Hemorrhage early . COMPARISON: ultrasound 2 days ago on 01/25/2022. LMP: Unknown. TECHNIQUE: Both transabdominal and endovaginal scanning was performed. FINDINGS: The uterus is unremarkable without evidence of a gestational sac. A normal 6 mm endometrium is present. The right ovary measures 5.7 x 3.6 x 4.4 cm and includes two cysts measuring 2.4 x 2.9 x 3.2 cm and 2.2 x 2.9 x 3.2 cm. The left ovary measures 4.6 x 3.6 x 3.9 cm and contains a complicated multiseptated cyst measuring 3.4 x 2.9 x 3.8 cm. In the left adnexa, there is a mass present measuring 4.5 x 2.2 x 2.0 cm that has some vascularity. It is uncertain whether this is related to the ovary. The technologist was unable to separate this from the left ovary using compression. [id number] amount of ascites is present in the cul-de-sac. US/US OB pelvic and transvaginal IMPRESSION: A gestational sac is not present in the uterus. Bilateral ovarian cysts. Mass in the left adnexa which must be considered suspicious for an ectopic . Please correlate with hCG levels and repeat ultrasounds if necessary. The glass technologist gave a preliminary report to Dr. Singh at 2:15 PM.
[2022-01-27 12:26] LABS: HCG Quantitative 718 mIU/mL
[2022-01-27 14:47] LABS: Hematocrit 38.4 % (37.0-47.0); Hemoglobin 12.9 g/dl (12.0-16.0); Mean Corpuscular HGB Conc 33.6 g/dl (31.0-35.0); Mean Corpuscular Hemoglobin 31.3 pg (27.0-33.0); Mean Corpuscular Volume 93.2 fL (80.0-98.0); Mean Platelet Volume 9.9 fL (9.4-12.3); Platelet Count 329 X10*3/uL (160-400); Red Blood Count 4.12 X10*6/uL (4.20-5.50); Red Cell Distribution Width 12.4 % (11.0-16.0); White Blood Count 9.2 X10*3/uL (4.8-10.8)
[2022-01-27 15:00] LABS: Alanine Aminotransferase 12 U/L (0-31); Aspartate Amino Transferase 18 U/L (5-31); Estimated Glomerular Filt Rate > 60
[2022-01-27 18:30] LABS: CT PCR NOT DETECTED (Not Detect.); NG PCR NOT DETECTED (Not Detect.)
== END 2022-01-27 11:07 | disposition home or self-care (01) ==
LOC: HO.LAB 11:06
PROVIDERS: PCP Nurse Practitioner Primary Care; Visit Provider Obstetrics & Gynecology
DX: O00.90 Unspecified ectopic pregnancy without intrauterine pregnancy (principal)
CPT/HCPCS: 36415; 76801; 76817; 82565; 84450; 84460; 84702; 85027; 87491; 87591; 96372; 99212; 99282; 99284; J9250

== ENCOUNTER 2022-01-27 12:24 | Outpatient (REF) | payer MEDICAID, SELFPAY | END 2022-01-27 12:25 | disposition home or self-care (01) | LOC: HO.LNP 12:24 | PROVIDERS: Visit Provider Obstetrics & Gynecology | DX: Z13.89 Encounter for screening for other disorder (principal) ==

== ENCOUNTER 2022-01-27 16:19 | Emergency (ER) | payer MEDICAID, SELFPAY ==
[2022-01-27 17:17] VITALS: BP 134/70; PULSE 83; RESP 16; TEMP 36.7; O2SAT 99; BMI 22.6
--- NOTE | 2022-01-27 18:31 | ED_ITS ---
HPI - General Adult General Chief complaint: General Medical Stated complaint: Sent for injection by DR Fenton Seen by Provider: 01/27/22 17:28 History of Present Illness HPI narrative: This is a 26-year-old female who was sent in by Dr. Francisco HOWARD for a methotrexate injection for an ectopic . Dr. Singh a call then in requested that the patient be given methotrexate today and then again on day 4 which would be 3 days from now. His notes reveal that the dose as stated by him was 76 mg IM. Patient denies any symptoms currently. She denies any dizziness, syncopal episodes, nausea vomiting, pelvic or abdominal pain. Related Data Previous Rx's Medication Instructions Recorded cyclobenzaprine 10 mg tablet 10 mg PO TID PRN muscle spasm 7 06/01/21 days #21 tabs Allergies Allergy/AdvReac Type Severity Reaction Status Date / Time No Known Allergies Allergy Verified 01/27/22 11:58 Review of Systems Review of Systems: Yes all other systems are reviewed and are negative Constitutional: Constitutional: Reports as per HPI and Denies fever(s) Eyes: Eyes: Reports as per HPI and Reports no additional eye complaints ENT: Reports system reviewed and no additional complaints, except as documented, Reports as per HPI, Denies nasal congestion, Denies nasal discharge and Denies sore throat Cardiovascular: Cardiovascular: Reports as per HPI, Denies chest pain and Denies dyspnea Respiratory: Respiratory: Reports as per HPI, Denies cough and Denies dyspnea Gastrointestinal: Gastrointestinal: Reports as per HPI, Denies abdominal pain, Denies diarrhea and Denies vomiting Genitourinary: Genitourinary: Reports as per HPI, Denies hematuria, Denies urinary frequency and Denies dysuria Musculoskeletal: Musculoskeletal: Reports no additional musculoskeletal complaints and Denies numbness Integumentary/Breasts: Skin/Breast: Reports as per HPI and Denies rash Neurologic: Reports as per HPI, Denies focal weakness and Denies numbness Psychiatric: Psychiatric: Reports no additional psychiatric complaints and Reports as per HPI Endocrine: Endocrine: Reports no additional endocrine complaints and Reports as per HPI Hematologic/Lymphatic: Hematologic/Lymphatic: Reports no additional hematologic/lymphatic complaints, Reports as per HPI and Reports other (No peripheral edema) [facility] Past Medical History Medical History No known health problems Family History Family History Maternal Grandmother Breast CA Social History Social History Patient Tobacco Use Status: Never used Tobacco Substance Use Type: Marijuana Advance Directives: No Advance Directives Information Provided: No Physical Exam ED Vital Signs: Vital Signs - 24 hr 01/27/22 17:17 Temperature 98.0 F Pulse Rate 83 Respiratory Rate 16 Blood Pressure 134/70 Pulse Oximetry 99 Oxygen Delivery Method Room Air BMI result Body Mass Index 22.6 Const General: no acute distress Orientation/consciousness: patient oriented x3 HENMT Head: Yes normal to inspection General nose exam: Normal external nose present Mouth: moist mucous membranes Throat: Yes posterior oropharynx normal, Yes tonsils normal and Yes uvula midline Eyes Eyelids: Yes eyelids normal Conjunctivae: conjunctivae normal Pupils: Equal, round and reactive pupils present Neck Neck: Yes supple Resp Effort & Inspection: normal respiratory effort Auscultation: clear to auscultation bilaterally Cardio Rate: regular rate Rhythm: regular rhythm Heart sounds: S1 normal heart sound present, S2 normal heart sound present, no gallops, no murmurs and no rubs GI Inspection: No distended Palpation (GI): Soft to palpation and nontender Auscultation: normal bowel sounds Skin General skin exam: other (Warm and dry) Neuro General: patient oriented x3 and CN's II-XI intact bilaterally Cranial nerves: Yes Equal, round and reactive pupils present Extrem General: Yes no pedal edema Psych Affect: normal affect Attitude: cooperative Course Course Course Narrative: The patient was given methotrexate 76 mg IM, per the instructions of Dr. Francisco Renteria of [facility]. Patient was asymptomatic, is instructed to return in 3 days for a day for shot of methotrexate and then she will follow up in the office for her day 7 shot. She is advised to return for any new or worsened symptoms Discharge Plan Discharge Clinical Impression: Ectopic Patient Disposition: Home, Self-Care Instructions: Ectopic (DC) Additional Instructions: Return in 3 days, for the day for doses of methotrexate, and have the 3rd dose done as scheduled by Dr. Francisco Renteria in the office on day 7 and day, 1 week from today. Return in the meantime for any worsening symptoms such as pelvic pain, dizziness, fainting. Prescriptions: No Action cyclobenzaprine 10 mg tablet 10 mg PO TID PRN (Reason: muscle spasm) 7 Days Qty: 21 0RF Interventions: ED Discharge Assessment Last Done: 01/27/22 18:34 Discharge Date/Time: 01/27/22 18:59
== END 2022-01-27 18:59 | disposition home or self-care (01) ==
PROVIDERS: Emergency Provider Emergency Medicine
DX: O00.90 Unspecified ectopic pregnancy without intrauterine pregnancy (principal)
CPT/HCPCS: 96372; 99282; 99284; J9250

== ENCOUNTER 2022-01-30 09:43 | Emergency (ER) | payer MEDICAID, SELFPAY ==
[2022-01-30 09:44] VITALS: BP 126/82; PULSE 74; RESP 17; TEMP 36.1; O2SAT 100; BMI 22.6
--- NOTE | 2022-01-30 09:52 | ED.RECABL ---
HPI - Recheck/Abnormal Lab/Rx General Chief Complaint: General Medical Stated Complaint: Ectopic preg Time Seen by Provider: 01/30/22 09:49 Source: patient Mode of arrival: ambulatory Limitations: no limitations History of Present Illness HPI narrative: 26 yo female here for 2nd methotrexate shot as planned with OB received on 01/27 76mg IM calculated by Dr. Singh. complaint: other (methotrexate shot) Initial visit (ago): day(s) (01/27) Initial visit for: other (ectopic methotrexate shot) Returns today for: other (hcg testing and 2nd shot) Symptoms since prior visit: no new symptoms Context: planned re-check Associated symptoms: none Related Data Previous Rx's Medication Instructions Recorded cyclobenzaprine 10 mg tablet 10 mg PO TID PRN muscle spasm 7 06/01/21 days #21 tabs ondansetron 4 mg disintegrating 4 mg PO Q8H PRN nausea and 01/30/22 tablet vomiting #20 tabs Allergies Allergy/AdvReac Type Severity Reaction Status Date / Time No Known Allergies Allergy Verified 01/27/22 11:58 Review of Systems Review of Systems: Constitutional : No Fever, No Chills ENT/Mouth : No sore throat, No Rhinorrhea Eyes: No Eye Pain, No Redness Cardiovascular : No Chest Pain, No SOB Respiratory : No Cough, No Sputum, No Wheezing Gastrointestinal : positive Nausea, No Vomiting, No Diarrhea, no abdominal pain, Genitourinary : positive irregular bleeding, No Dysuria, No Urinary Frequency, positive pelvic pain Musculoskeletal : No Myalgias Skin : No rash Neuro : No Weakness, No Headache Psych : No Anxiety/Panic, No Depression Heme/Lymph: No bruising, No Lymphadenopathy Endocrine : No Polyuria, No Polydipsia All other systems reviewed and are negative [facility] Past Medical History Attestation statement: The following information was validated with the patient. Source: old records reviewed Medical History Ectopic Family History Family History Maternal Grandmother Breast CA Social History Social History Patient Tobacco Use Status: Never used Tobacco Substance Use Type: Marijuana Advance Directives: No Advance Directives Information Provided: Yes Physical Exam Vital Signs: Vital Signs: Last Vital Signs Temp 97 F 01/30/22 09:44 Pulse 74 01/30/22 09:44 Resp 17 01/30/22 09:44 BP 126/82 01/30/22 09:44 Pulse Ox 100 01/30/22 09:44 O2 Del Method 01/30/22 09:44 BMI result Body Mass Index 22.6 Appearance: Alert. Oriented X3. No acute distress. Eyes: Pupils equal, round and reactive to light. ENT: Pharynx normal. Neck: Normal inspection. Neck supple. CVS: Normal heart rate and rhythm. Pulses normal. Respiratory: No respiratory distress. Breath sounds normal. Abdomen: Soft and non-tender. Skin: Skin warm and dry. Normal skin color. Normal skin turgor. Extremities: No lower extremity edema. No calf ttp Neuro: Oriented X 3. No motor deficit. No sensory deficit. MDM - Recheck/Abnormal Lab/Rx MDM Narrative Medical decision making narrative: 26 yo female with hx of ectopic already 1st dose of methotrexate doing well mild bleeding abdomen is benign - here for repeat dose. at this time mild drop in H/H as expected, no ttp on abdominal exam. at night while at work has had mild intermittent cramps - will give dose, check labs, refer to OB send home with work note and zofran. given precautions to return Discharge Plan Discharge Clinical Impression: Ectopic Qualifiers: Location of ectopic : other location Intrauterine status: without intrauterine Qualified Code(s): O00.80 - Other ectopic without intrauterine Patient Disposition: Home, Self-Care Instructions: Ectopic (DC) Additional Instructions: return to ED for any worsening symptoms or concerns please follow up with Dr. Singh as planned return for severe abdominal pain, heavy bleeding clots, dizziness, fainting or any other concerns Prescriptions: New ondansetron 4 mg tablet,disintegrating 4 mg PO Q8H PRN (Reason: nausea and vomiting) Qty: 20 0RF No Action cyclobenzaprine 10 mg tablet 10 mg PO TID PRN (Reason: muscle spasm) 7 Days Qty: 21 0RF Stand Alone Forms: Work/School Release
[2022-01-30 10:10] LABS: Hematocrit 35.5 % (37.0-47.0); Hemoglobin 11.8 g/dl (12.0-16.0); Mean Corpuscular HGB Conc 33.2 g/dl (31.0-35.0); Mean Corpuscular Hemoglobin 31.9 pg (27.0-33.0); Mean Corpuscular Volume 95.9 fL (80.0-98.0); Mean Platelet Volume 10.3 fL (9.4-12.3); Platelet Count 306 X10*3/uL (160-400); Red Cell Distribution Width 12.4 % (11.0-16.0); White Blood Count 6.1 X10*3/uL (4.8-10.8)
[2022-01-30 10:37] LABS: Alanine Aminotransferase 12 U/L (0-31); Albumin Level 4.6 g/dL (3.5-5.0); Alkaline Phosphatase 50 U/L (39-117); Aspartate Amino Transferase 17 U/L (5-31); Bilirubin Direct 0.2 mg/dL (0.0-0.5); Bilirubin Total 0.6 mg/dL (0.0-1.0); Total Protein 7.4 g/dL (6.5-8.0)
[2022-01-30 10:43] LABS: HCG Quantitative 614 mIU/mL
== END 2022-01-30 11:44 | disposition home or self-care (01) ==
PROVIDERS: Emergency Provider Emergency Medicine; PCP Nurse Practitioner Primary Care
DX: O00.80 Other ectopic pregnancy without intrauterine pregnancy (principal); Z79.899 Other long term (current) drug therapy
CPT/HCPCS: 36415; 80076; 84702; 85027; 96372; 99283; 99284; J9250

== ENCOUNTER 2022-02-02 | Outpatient (REF) | payer MEDICAID, SELFPAY | END 2022-02-02 00:01 | disposition home or self-care (01) | LOC: HO.LAB | PROVIDERS: Visit Provider Obstetrics & Gynecology | DX: O00.80 Other ectopic pregnancy without intrauterine pregnancy (principal); N83.291 Other ovarian cyst, right side; N83.292 Other ovarian cyst, left side | CPT/HCPCS: 99212 ==

== ENCOUNTER 2022-02-02 09:13 | Outpatient (REF) | payer MEDICAID, SELFPAY ==
--- NOTE | ~2022-02-02 | US_ITS ---
EXAMINATION: US PELVIS CLINICAL INFORMATION: Persistently elevated beta hCG COMPARISON: 01/27/2022 TECHNIQUE: Ultrasound of the pelvis is performed using both transabdominal and transvaginal transducers along with Doppler. Transvaginal imaging is performed due to inadequate visualization transabdominally. FINDINGS: Uterus: Uterus is unremarkable. Endometrium measures 1.0 cm, previous measurement was 6 mm. Trace free fluid identified within the endometrial canal. No intrauterine gestational sac, pole or yolk sac seen. Adnexa: Right ovary measures 4.5 x 2.3 x 3.6 cm. Previous measurement was 5.7 x 3.6 x 4.4 cm. 2 increasingly complex appearing right ovarian cysts are identified, one measuring 2.8 x 2.9 x 1.5 cm, the other measuring 3.0 x 2.6 x 2.8 cm, previous maximum diameters were 3.2 and 3.2 cm. Left ovary measures 3.5 x 2.1 x 2.7 cm. Previous measurement was 4.6 x 3.6 x 3.9 cm. Increasingly complex left ovarian cyst measuring 2.8 x 1.5 x 2.1 cm previously measured 3.4 x 2.9 x 3.8 cm.. Left adnexal mass medial to the left ovary is again seen measuring 2.0 x 4.6 x 2.0 cm, previous measurement was 4.5 x 2.2 x 2.0 cm. Small amount of internal vascularity again demonstrated. Moderate free pelvic fluid again identified. US/US pelvic and transvaginal IMPRESSION: Essentially unchanged left adnexal mass, still concerning for ectopic . Continued correlation with hCG levels and follow-up ultrasounds if necessary. Increasingly endometrial thickness and interval development of trace endometrial fluid. No change moderate pelvic free fluid. Increasingly complex appearing bilateral ovarian cysts.
[2022-02-02 10:50] LABS: HCG Quantitative 535 mIU/mL
[2022-02-02 13:14] LABS: Hematocrit 34.7 % (37.0-47.0); Hemoglobin 11.5 g/dl (12.0-16.0); Mean Corpuscular HGB Conc 33.1 g/dl (31.0-35.0); Mean Corpuscular Hemoglobin 31.4 pg (27.0-33.0); Mean Corpuscular Volume 94.8 fL (80.0-98.0); Mean Platelet Volume 10.7 fL (9.4-12.3); Platelet Count 303 X10*3/uL (160-400); Red Blood Count 3.66 X10*6/uL (4.20-5.50); Red Cell Distribution Width 12.6 % (11.0-16.0)
[2022-02-02 13:40] LABS: Alanine Aminotransferase 16 U/L (0-31); Aspartate Amino Transferase 18 U/L (5-31); Estimated Glomerular Filt Rate > 60
== END 2022-02-02 09:14 | disposition home or self-care (01) ==
LOC: HO.LAB 09:13
PROVIDERS: PCP Nurse Practitioner Primary Care; Visit Provider Obstetrics & Gynecology
DX: O00.80 Other ectopic pregnancy without intrauterine pregnancy (principal)
CPT/HCPCS: 36415; 76830; 76856; 82565; 84450; 84460; 84702; 85027; 99212

== ENCOUNTER 2022-02-06 19:15 | Outpatient (REF) | payer MEDICAID, SELFPAY ==
[2022-02-06 19:56] LABS: HCG Quantitative 311 mIU/mL
== END 2022-02-06 19:16 | disposition home or self-care (01) ==
LOC: HO.LAB 19:15
PROVIDERS: Visit Provider Obstetrics & Gynecology
DX: O00.90 Unspecified ectopic pregnancy without intrauterine pregnancy (principal); O03.9 Complete or unspecified spontaneous abortion without complication
CPT/HCPCS: 36415; 84702

== ENCOUNTER 2022-02-09 09:04 | Outpatient (REF) | payer MEDICAID, SELFPAY ==
[2022-02-09 10:47] LABS: HCG Quantitative 202 mIU/mL
== END 2022-02-09 09:05 | disposition home or self-care (01) ==
LOC: HO.LAB 09:04
PROVIDERS: PCP Nurse Practitioner Primary Care; Visit Provider Obstetrics & Gynecology
DX: O00.90 Unspecified ectopic pregnancy without intrauterine pregnancy (principal)
CPT/HCPCS: 36415; 84702; 99212

== ENCOUNTER 2022-02-28 08:27 | Outpatient (REF) | payer MEDICAID, SELFPAY ==
[2022-02-28 09:28] LABS: HCG Quantitative 4 mIU/mL
== END 2022-02-28 08:28 | disposition home or self-care (01) ==
LOC: HO.LAB 08:27
PROVIDERS: PCP Nurse Practitioner Primary Care; Visit Provider Obstetrics & Gynecology
DX: O00.90 Unspecified ectopic pregnancy without intrauterine pregnancy (principal)
CPT/HCPCS: 36415; 84702; 99212

== ENCOUNTER 2022-03-16 09:54 | Outpatient (REF) | payer MEDICAID, SELFPAY ==
[2022-03-16 11:42] LABS: HCG Quantitative < 2 mIU/mL
== END 2022-03-16 09:55 | disposition home or self-care (01) ==
LOC: HO.LAB 09:54
PROVIDERS: PCP Nurse Practitioner Primary Care; Visit Provider Advanced Practice Midwife
DX: O00.90 Unspecified ectopic pregnancy without intrauterine pregnancy (principal); N83.291 Other ovarian cyst, right side; N83.292 Other ovarian cyst, left side; Z30.09 Encounter for other general counseling and advice on contraception; Z32.02 Encounter for pregnancy test, result negative
CPT/HCPCS: 36415; 81025; 84702; 99212

== ENCOUNTER 2022-07-21 16:36 | Outpatient (REF) | payer MEDICAID, SELFPAY ==
--- NOTE | ~2022-07-21 | US_ITS ---
EXAMINATION: US PELVIS CLINICAL INFORMATION: Ovarian cyst. 27-year-old, unknown LMP. COMPARISON: 02/02/2022 TECHNIQUE: Ultrasound of the pelvis is performed using both transabdominal and transvaginal transducers along with Doppler. Transvaginal imaging is performed due to inadequate visualization transabdominally. FINDINGS: Uterus: The uterus is anteverted and measures 8.5 x 4.0 x 5.0 cm. The double wall endometrial thickness is 1.0 mm. The uterus is smooth in contour and has normal myometrial echogenicity. No visible fibroid. Adnexa: Both ovaries are visualized. There is normal color flow to the adnexa. There is no ovarian torsion. There is no pelvic ascites or fluid collection. Right ovary measures 2.5 x 1.7 x 2.1 cm. Left ovary measures 3.7 x 1.7 x 2.1 cm. Left intraovarian 1.6 x 0.3 x 1.6 corpus luteum. US/US pelvic and transvaginal IMPRESSION: Left intraovarian 1.6 cm corpus luteum. Otherwise, unremarkable pelvic ultrasound.
== END 2022-07-21 16:37 | disposition home or self-care (01) ==
LOC: HO.US 16:36
PROVIDERS: PCP Nurse Practitioner Primary Care; Visit Provider Obstetrics & Gynecology
DX: N83.299 Other ovarian cyst, unspecified side (principal)
CPT/HCPCS: 76830; 76856

== ENCOUNTER → 2022-08-04 15:11 | Outpatient (BNVA) | payer MEDICAID, SELFPAY | PROVIDERS: PCP Nurse Practitioner Primary Care; Visit Provider Obstetrics & Gynecology | DX: N83.291 Other ovarian cyst, right side (principal); N83.292 Other ovarian cyst, left side | CPT/HCPCS: 99212 ==

== ENCOUNTER 2022-09-13 10:15 | Outpatient (REF) | payer MEDICAID, SELFPAY | END 2022-09-13 10:16 | disposition home or self-care (01) | LOC: HO.LNP 10:15 | PROVIDERS: PCP Nurse Practitioner Primary Care; Visit Provider Obstetrics & Gynecology | DX: Z01.419 Encounter for gynecological examination (general) (routine) without abnormal findings (principal) | CPT/HCPCS: 81025; 88142 ==

== ENCOUNTER 2023-08-01 13:28 | Outpatient (REF) | payer MEDICAID, SELFPAY ==
[2023-08-01 16:06] LABS: MANUAL DIFF FLAG NO
[2023-08-01 16:18] LABS: Appearance Urine Cloudy; Color Urine Yellow; Glucose Urine UA Negative (Negative); Leukocyte Esterase Urine Small (1+) (Negative); Nitrite Urine Negative (Negative); Specific Gravity - Urine 1.015 (1.005-1.025); UMIC TRIGGER UA YES; Urine Blood Negative (Negative); Urine Ketones Negative (Negative); Urine Protein Negative (Neg-Trace)
[2023-08-01 16:27] LABS: Prothrombin Time 12.2 SEC (11.1-13.3)
[2023-08-01 16:29] LABS: Partial Thromboplastin Time 31.6 SEC (26.0-36.8)
[2023-08-01 16:37] LABS: Bacteria Urine Trace (None Seen); Hyaline Casts Urine 0-2 /LPF (0-2)
[2023-08-01 16:39] LABS: Basophils Absolute Auto 0.1 X10*3/uL (0.0-0.2); Basophils Percent Auto 0.9 % (0-2); Eosinophils Absolute Auto 0.2 X10*3/uL (0.0-0.4); Eosinophils Percent Auto 2.6 % (0-4); Hematocrit 36.9 % (37.0-47.0); Hemoglobin 12.5 g/dl (12.0-16.0); Imm Gran Abs Auto 0.03 X10*3/uL (0.00-0.03); Imm Gran Pct Auto 0.5 % (0.0-0.4); Lymphocytes Absolute Auto 1.4 X10*3/uL (1.2-4.9); Lymphocytes Percent Auto 21.9 % (20-40); Mean Corpuscular HGB Conc 33.9 g/dl (31.0-35.0); Mean Corpuscular Hemoglobin 31.1 pg (27.0-33.0); Mean Corpuscular Volume 91.8 fL (80.0-98.0); Mean Platelet Volume 10.7 fL (9.4-12.3); Monocytes Absolute Auto 0.6 X10*3/uL (0.1-1.2); Monocytes Percent Auto 9.4 % (2-11); Neutrophils Absolute Auto 4.2 x10*3/uL (2.0-8.3); Neutrophils Percent Auto 64.7 % (45-73); Platelet Count 325 X10*3/uL (160-400); Red Blood Count 4.02 X10*6/uL (4.20-5.50); White Blood Count 6.5 X10*3/uL (4.8-10.8)
[2023-08-01 16:41] LABS: RBC Urine 0-2 /HPF (0-2)
[2023-08-01 16:52] LABS: Estimated Average Glucose 94 mg/dL; Hemoglobin A1c % 4.9 % (<6.0)
[2023-08-01 17:39] LABS: Alanine Aminotransferase 19 U/L (0-31); Albumin Level 4.4 g/dL (3.5-5.0); Alkaline Phosphatase 47 U/L (39-117); Anion Gap 14 (12-20); Aspartate Amino Transferase 17 U/L (5-31); Bilirubin Total 0.4 mg/dL (0.0-1.0); Blood Urea Nitrogen 6 mg/dL (9-16); Calcium 9.3 mg/dL (8.4-10.2); Carbon Dioxide 22 mmol/L (22-29); Chloride 108 mmol/L (96-108); Estimated Glomerular Filt Rate > 60; Glucose Random 109 mg/dL (60-115); Potassium 3.5 mmol/L (3.3-5.1); Sodium 140 mmol/L (135-145); Total Protein 7.4 g/dL (6.5-8.0)
[2023-08-01 17:55] LABS: HCG Quantitative < 2 mIU/mL; TSH reflex Free T4 1.92 uIU/mL (0.32-4.0); Thyroid Stimulating Hormone 1.92 uIU/mL (0.32-4.0)
[2023-08-02 04:19] LABS: HIV AB/AG Nonreactive (Nonreactive); HIV Num 1 0.04 S/CO (0.00-0.99)
[2023-08-02 11:53] LABS: Hepatitis B Viral DNA Qn - cp NOT DETECTED Log IU/mL (NOT DETECTED); Hepatitis B Viral DNA Qn-IU/mL NOT DETECTED (NOT DETECTED)
== END 2023-08-01 13:29 | disposition home or self-care (01) ==
LOC: HO.HHCL 13:28
PROVIDERS: Visit Provider Internal Medicine Geriatric Medicine
DX: Z01.810 Encounter for preprocedural cardiovascular examination (principal); Z01.818 Encounter for other preprocedural examination; Z01.811 Encounter for preprocedural respiratory examination
CPT/HCPCS: 36415; 80053; 81001; 83036; 84443; 84702; 85025; 85610; 85730; 87389; 87517

== ENCOUNTER 2023-08-06 16:23 | Emergency (ER) | payer SELFPAY ==
--- NOTE | ~2023-08-06 | US_ITS ---
EXAMINATION: US OBSTETRICAL ULTRASOUND CLINICAL INFORMATION: Vaginal bleeding COMPARISON: 07/21/2022. TECHNIQUE: Transabdominal and transvaginal pelvic ultrasound. A transvaginal study was performed in addition to the transabdominal study which did not yield an adequate examination of the uterus and ovaries due to superimposed distended gas-filled loops of bowel. FINDINGS: The uterus is normal in size and appearance, measuring 7.8 x 4.0 x 5.8. cm longitudinally, anteroposteriorly and transversely. The endometrial stripe thickness is normal, measuring 0.3 cm in thickness. No focal myometrial mass is seen. No findings indicate intrauterine . No decidual reaction, gestational estimate gestational sac. The ovaries bilaterally are visualized and appear normal, with the right ovary measuring 3.2 x 1.7 x 2.6 cm and the left ovary measuring 2.5 x 1.4 x 2.5 cm. No adnexal mass or free fluid collection seen. US/US OB pelvic and transvaginal IMPRESSION: No evidence for any intrauterine or ectopic . Correlate with hCG levels and consider short interval follow-up as warranted..
[2023-08-06 16:30] VITALS: BP 141/83; PULSE 91; RESP 18; TEMP 36.5; O2SAT 99; BMI 23.9
--- NOTE | 2023-08-06 16:35 | ED.GENADULT ---
HPI - General Adult General Chief complaint: Vaginal Bleeding Stated complaint: possible eptopic preg Time Seen by Provider: 08/06/23 17:43 Source: patient Mode of arrival: ambulatory Limitations: no limitations History of Present Illness HPI narrative: Patient is a 28 year old assigned female at with a history of ectopic presenting to the emergency department today with vaginal spotting and a positive test. Patient states that earlier today she was feeling unwell and thought she should take a test and it was positive. Patient states that she is at the end of her menstrual cycle and is having some minimal spotting. Patient denies any dizziness, lightheadedness, abdominal pain, nausea, vomiting, fever, chills, blurry vision, double vision, loss of vision, chest pain, difficulty breathing, shortness of breath, back pain, night sweats, pain with urination, increased urinary frequency, increased urinary urgency, blood in her stool, syncope or a near syncopal episode, recent trauma or falls, bowel incontinence, bladder incontinence, bowel retention, bladder retention, or any other complaints at this time. Onset (ago): hour(s) Relieving factors: none Exacerbating factors: none Associated symptoms: denies other symptoms Treatments prior to arrival: none Related Data Previous Rx's ?Medication ?Instructions ?Recorded vitamin with calcium 1 tab PO DAILY 90 days #90 tabs 11/29/22 no.72-iron 27 mg-folic acid 1 mg tablet ( Vitamins Plus Low Iron) Allergies Allergy/AdvReac Type Severity Reaction Status Date / Time No Known Allergies Allergy Verified 08/06/23 16:30 Review of Systems Constitutional: Constitutional: Reports no additional constitutional complaints, Denies chills, Denies fever(s) and Denies night sweats Eyes: Eyes: Reports no additional eye complaints, Denies blurry vision, Denies change in vision, Denies diplopia, Denies eye discharge, Denies loss of vision and Denies eye pain ENT: Denies dizziness Cardiovascular: Cardiovascular: Reports no additional cardiovascular complaints, Denies chest pain, Denies lightheadedness, Denies Loss of Consciousness and Denies dyspnea Respiratory: Respiratory: Reports no additional respiratory complaints and Denies dyspnea Gastrointestinal: Gastrointestinal: Reports no additional gastrointestinal complaints, Denies abdominal pain, Denies melena, Denies hematochezia, Denies change in bowel habits and Denies change in stool character Genitourinary: Genitourinary: Denies hematuria, Denies urinary frequency, Denies dysuria, Denies urinary incontinence, Denies urinary hesitancy and Denies urinary urgency Musculoskeletal: Musculoskeletal: Reports no additional musculoskeletal complaints, Denies numbness and Denies tingling Neurologic: Denies dizziness, Denies loss of vision, Denies numbness and Denies tingling Psychiatric: Psychiatric: Reports no additional psychiatric complaints Endocrine: Endocrine: Reports no additional endocrine complaints Hematologic/Lymphatic: Hematologic/Lymphatic: Reports no additional hematologic/lymphatic complaints Allergic/Immunologic: Allergic/Immunologic: Reports no additional allergic/immunologic complaints [facility] Past Medical History Attestation statement: The following information was validated with the patient. 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 Sexual orientation: Straight/Heterosexual Gender identity: Female Physical Exam ED Vital Signs: Vital Signs - 24 hr 08/06/23 16:30 08/06/23 19:13 08/06/23 19:56 Temperature 97.7 F 98.3 F 98.0 F Pulse Rate 91 84 84 Respiratory Rate 18 14 14 Blood Pressure 141/83 H 122/90 H 122/90 H Pulse Oximetry 99 98 95 Oxygen Delivery Method Room Air Room Air Room Air BMI result Body Mass Index 23.9 Const General: cooperative, no acute distress, alert and awake Nutritional Appearance: well nourished Orientation/consciousness: patient oriented x3 Limitations: no limitations HENMT Head: Yes normal to inspection and Yes atraumatic Ears: hearing grossly normal bilaterally and external ears normal General nose exam: Normal external nose present, no nasal discharge noted and no epistaxis Face and sinus: Yes normal facial exam, No abrasion and No laceration Mouth: Normal oral and palatal mucosa present, no drooling and no muffled voice Eyes General: appearance normal, both eyes and all related structures Periorbital: periorbital findings normal Eyelids: Yes eyelids normal Conjunctivae: conjunctivae normal Pupils: Equal, round and reactive pupils present EOM: EOMs intact bilaterally Neck Neck: Yes normal visual inspection, Yes full ROM and Yes no lymphadenopathy Chest Chest palpation & inspection: normal inspection of the chest Resp Effort & Inspection: normal respiratory effort and able to speak in complete sentences GI Inspection: Yes normal to inspection Neuro General: patient oriented x3 and moves all extremities Cranial nerves: Yes Equal, round and reactive pupils present Cognition (Neuro): normal cognition Motor exam (neuro): 5/5 motor strength present throughout Sensory Exam: Normal double simultaneous stimulation for sensation Coordination: [id number] test normal Extrem General: Yes normal to inspection, Yes full ROM and Yes capillary refill normal Psych Appearance: grossly normal Mental Status: mental status grossly normal Affect: normal affect Attitude: cooperative Thought process: Normal thought process present Thought content: Normal thought content present Insight: Good insight present (Psych) Course Course Course Narrative: RME performed by David Calderon. 28-year-old female with known history ectopic presents to ED for positive test and vaginal spotting. Patient thought she finishes. Today, she was bleeding and today just spotting. Patient states not much pain. Labs ultrasound ordered. Medical Decision Making Medical Decision Making [facility] Narrative: Patient is a 28 year old assigned female at with a history of ectopic presenting to the emergency department today with vaginal spotting at the end of her menstrual cycle and a positive home test. Patient's physical exam was unremarkable. Patient's blood work was unremarkable. Patient's urine showed no acute process. Patient's US showed no acute process. I explained my physical exam findings as well as all test results to the patient. I answered all questions asked by the patient. I stressed the importance of the patient taking her medication as prescribed. I stressed the importance of the patient following up with her primary care provider. I stressed the importance of the patient returning to the emergency department immediately if her symptoms were to worsen or if she were to develop any dizziness, shortness of breath, difficulty breathing, chest pain, blurry vision, loss of vision, nausea, vomiting, abdominal pain, fever, chills, back pain, or any other complaints. Patient verbalized agreement and understanding with this treatment plan and discharge. Differential Diagnosis Differential Diagnoses: The differential diagnosis associated with the presentation includes Vaginal bleeding Normal menstrual cycle Possible Admission/Observation Consideration of admission/observation: Escalation of care including admission/observation considered Patient would have been admitted to the hospital had her work up had any findings where hospital admission was appropriate and her clinical presentation warranted hospital admission. Lab Data MDM Lab Attestation statement: I reviewed the patient's lab results. My interpretation of these studies and their corresponding values is that they are grossly normal. 08/06/23 18:00 08/06/23 18:00 Labs: Lab Results 08/06/23 08/06/23 Range/Units 18:00 19:18 WBC 6.1 (4.8-10.8) X10*3/uL RBC 4.25 (4.20-5.50) X10*6/uL Hgb 13.3 (12.0-16.0) g/dl Hct 38.9 (37.0-47.0) % MCV 91.5 (80.0-98.0) fL MCH 31.3 (27.0-33.0) pg MCHC 34.2 (31.0-35.0) g/dl RDW 12.6 (11.0-16.0) % Plt Count 286 (160-400) X10*3/uL MPV 10.2 (9.4-12.3) fL Immature Gran % (Auto) 0.3 (0.0-0.4) % Neut % (Auto) 63.8 (45-73) % Lymph % (Auto) 23.9 (20-40) % Ray % (Auto) 9.0 (2-11) % Eos % (Auto) 2.3 (0-4) % Baso % (Auto) 0.7 (0-2) % Lymph # (Auto) 1.5 (1.2-4.9) X10*3/uL Ray # (Auto) 0.6 (0.1-1.2) X10*3/uL Eos # (Auto) 0.1 (0.0-0.4) X10*3/uL Baso # (Auto) 0.0 (0.0-0.2) X10*3/uL Abs Immat Gran (auto) 0.02 (0.00-0.03) X10*3/uL Absolute Neuts (auto) 3.9 (2.0-8.3) x10*3/uL Absolute Nucleated RBC 0.000 (0.0-0.012) X10*3/uL Nucleated RBC % (auto) 0.0 (0.0-0.2) /100WBC PT 12.0 (11.1-13.3) SEC INR 1.0 (0.9-1.1) APTT 22.7 L D (26.0-36.8) SEC Sodium 140 (135-145) mmol/L Potassium 3.7 (3.3-5.1) mmol/L Chloride 104 (96-108) mmol/L Carbon Dioxide 24 (22-29) mmol/L Anion Gap 16 (12-20) BUN 12 (9-16) mg/dL Creatinine 0.74 (0.5-1.4) mg/dL Estim Creat Clear Calc 83.8 Estimated GFR > 60 Random Glucose 82 (60-115) mg/dL Calcium 9.8 (8.4-10.2) mg/dL Total Bilirubin 0.8 (0.0-1.0) mg/dL AST 23 (5-31) U/L ALT 26 (0-31) U/L Alkaline Phosphatase 44 (39-117) U/L Total Protein 8.4 H (6.5-8.0) g/dL Albumin 4.9 (3.5-5.0) g/dL Beta HCG, Quant < 2 mIU/mL Urine Color Yellow Urine Appearance Clear Urine pH 6.5 (5.0-9.0) Ur Specific [place] 1.020 (1.005-1.025) Urine Protein Negative (Neg-Trace) mg/dL Urine Glucose (UA) Negative (Negative) mg/dL Urine Ketones 15 (Negative) mg/dL Urine Blood Small (1+) H (Negative) Urine Nitrite Negative (Negative) Ur Leukocyte Esterase Negative (Negative) Urine RBC 0-2 (0-2) /HPF Urine WBC 0-5 (0-5) /HPF Ur Squamous Epith Cells 3-5 (0-2) /HPF Urine Bacteria None Seen (None Seen) Hyaline Casts 0-2 (0-2) /LPF Independent Interpretation I performed an independent interpretation of an: Ultrasound Interpretation: My interpretation is in agreement with the radiologist's impression of this imaging study. EXAMINATION: US OBSTETRICAL ULTRASOUND CLINICAL INFORMATION: Vaginal bleeding COMPARISON: 07/21/2022. TECHNIQUE: Transabdominal and transvaginal pelvic ultrasound. A transvaginal study was performed in addition to the transabdominal study which did not yield an adequate examination of the uterus and ovaries due to superimposed distended gas-filled loops of bowel. FINDINGS: The uterus is normal in size and appearance, measuring 7.8 x 4.0 x 5.8. cm longitudinally, anteroposteriorly and transversely. The endometrial stripe thickness is normal, measuring 0.3 cm in thickness. No focal myometrial mass is seen. No findings indicate intrauterine . No decidual reaction, gestational estimate gestational sac. The ovaries bilaterally are visualized and appear normal, with the right ovary measuring 3.2 x 1.7 x 2.6 cm and the left ovary measuring 2.5 x 1.4 x 2.5 cm. No adnexal mass or free fluid collection seen. US/US OB pelvic and transvaginal IMPRESSION: No evidence for any intrauterine or ectopic . Correlate with hCG levels and consider short interval follow-up as warranted.. Dictated By: Esetban Jean MD Signed By: Electronically signed by Esteban Jean MD 08/06/231956 Radiology Impression Discussion of test interpretation with radiology: I have reviewed the radiologist's reading. Discharge Plan Discharge Clinical Impression: Abnormal bleeding in menstrual cycle Patient Disposition: Home, Self-Care Additional Instructions: You are not . Your beta HCG level is normal (not elevated as required for ). Your ultrasound showed no abnormalities. Follow up with your primary care provider. Return to the emergency department immediately if your symptoms worsen or if you develop any dizziness, shortness of breath, difficulty breathing, chest pain, blurry vision, loss of vision, nausea, vomiting, abdominal pain, fever, chills, back pain, or any other complaints. Prescriptions: No Action Vitamin Plus Low Iron 27 mg iron- 1 mg tablet 1 tab PO DAILY 90 Days Qty: 90 1RF Referrals: Latasha Reilly MEDICAL OFFICE SECRETARY [Primary Care Provider] - Stand Alone Forms: Work/School Release Interventions: ED Discharge Assessment Last Done: 08/06/23 19:56 Discharge Date/Time: 08/06/23 19:57 Print Language: [place]
--- OUTSIDE RECORDS SUMMARY | 2023-08-06 17:38 | XMS_ITS | Continuity of Care Document ---
Author Organization [facility] Address [address] [place] [id number]- Care Team Providers Care Wire Fence Builder Name Role Phone Piter DELANEY, Nikko Brownlee Primary Care Physician Encounter [facility] [place] Date(s): 12/02/22 - 02/16/[address] [id number] Attending Physician: Not on Staff, Attending MD Allergies, Adverse Reactions, Alerts No Known Allergies Immunizations Given and Recorded Vaccine Date Status Refusal Reason SARS-CoV-2 mRNA ([id number]) vax 05/18/21 Given Problem List Condition Confirmation Course Effective Dates Status H ealth Status Informant MIREYA I (cervical intraepithelial neoplasia I) Confirmed Active Patient Care team information Care Team Personnel Name: Joann Trammell Position: [facility] Outreach Member Role: Lifetime Consulting Physician Care Team Related Persons Name: TINO NICOLE Address: home [address] [place] [id number]
--- OUTSIDE RECORDS SUMMARY | 2023-08-06 17:38 | XMS_ITS | Continuity of Care Document ---
Author Organization [facility] Address [address] [place] [id number]- Care Team Providers Care Powder Operator Name Role Phone Piter DELANEY, Nikko Brownlee Primary Care Physician Encounter [facility] [place] Date(s): 01/17/23 - 02/16/[address] [address] Attending Physician: Antonieta Helm Admitting Physician: Antonieta Helm Referring Physician: AdmAntonieta jolly Allergies, Adverse Reactions, Alerts No Known Allergies Immunizations Given and Recorded Vaccine Date Status Refusal Reason SARS-CoV-2 mRNA ([id number]) vax 05/18/21 Given Problem List Condition Confirmation Course Effective Dates Status H ealth Status Informant MIREYA I (cervical intraepithelial neoplasia I) Confirmed Active Patient Care team information Care Team Personnel Name: Joann Trammell Position: [facility] Outreach Member Role: Lifetime Consulting Physician Care Team Related Persons Name: NICOLETINO Address: home [address] [place] [id number]
[2023-08-06 18:07] LABS: MANUAL DIFF FLAG NO
[2023-08-06 18:09] LABS: Basophils Percent Auto 0.7 % (0-2); Eosinophils Absolute Auto 0.1 X10*3/uL (0.0-0.4); Eosinophils Percent Auto 2.3 % (0-4); Hematocrit 38.9 % (37.0-47.0); Hemoglobin 13.3 g/dl (12.0-16.0); Imm Gran Abs Auto 0.02 X10*3/uL (0.00-0.03); Imm Gran Pct Auto 0.3 % (0.0-0.4); Lymphocytes Absolute Auto 1.5 X10*3/uL (1.2-4.9); Lymphocytes Percent Auto 23.9 % (20-40); Mean Corpuscular HGB Conc 34.2 g/dl (31.0-35.0); Mean Corpuscular Hemoglobin 31.3 pg (27.0-33.0); Mean Corpuscular Volume 91.5 fL (80.0-98.0); Mean Platelet Volume 10.2 fL (9.4-12.3); Monocytes Absolute Auto 0.6 X10*3/uL (0.1-1.2); Neutrophils Absolute Auto 3.9 x10*3/uL (2.0-8.3); Neutrophils Percent Auto 63.8 % (45-73); Platelet Count 286 X10*3/uL (160-400); Red Blood Count 4.25 X10*6/uL (4.20-5.50); Red Cell Distribution Width 12.6 % (11.0-16.0); White Blood Count 6.1 X10*3/uL (4.8-10.8)
[2023-08-06 18:30] LABS: Alanine Aminotransferase 26 U/L (0-31); Albumin Level 4.9 g/dL (3.5-5.0); Alkaline Phosphatase 44 U/L (39-117); Anion Gap 16 (12-20); Aspartate Amino Transferase 23 U/L (5-31); Bilirubin Total 0.8 mg/dL (0.0-1.0); Blood Urea Nitrogen 12 mg/dL (9-16); Calcium 9.8 mg/dL (8.4-10.2); Carbon Dioxide 24 mmol/L (22-29); Chloride 104 mmol/L (96-108); Creatinine Clr Calc Pharmacy 83.8; Estimated Glomerular Filt Rate > 60; Glucose Random 82 mg/dL (60-115); Partial Thromboplastin Time 22.7 SEC (26.0-36.8); Potassium 3.7 mmol/L (3.3-5.1); Sodium 140 mmol/L (135-145); Total Protein 8.4 g/dL (6.5-8.0)
[2023-08-06 18:32] LABS: HCG Quantitative < 2 mIU/mL
[2023-08-06 19:13] VITALS: BP 122/90; PULSE 84; RESP 14; TEMP 36.8; O2SAT 98
[2023-08-06 19:25] LABS: Appearance Urine Clear; Color Urine Yellow; Glucose Urine UA Negative (Negative); Leukocyte Esterase Urine Negative (Negative); Nitrite Urine Negative (Negative); PH 6.5 (5.0-9.0); UMIC TRIGGER UACC YES; Urine Blood Small (1+) (Negative); Urine Ketones 15 mg/dL (Negative); Urine Protein Negative (Neg-Trace)
[2023-08-06 19:37] LABS: Bacteria Urine None Seen (None Seen); Hyaline Casts Urine 0-2 /LPF (0-2); RBC Urine 0-2 /HPF (0-2); WBC Urine 0-5 /HPF (0-5)
[2023-08-06 19:56] VITALS: BP 122/90; PULSE 84; RESP 14; TEMP 36.7; O2SAT 95
== END 2023-08-06 19:57 | disposition home or self-care (01) ==
PROVIDERS: Physician Assistant; Emergency Provider Internal Medicine; PCP Nurse Practitioner Primary Care
DX: N93.9 Abnormal uterine and vaginal bleeding, unspecified (principal); Z87.59 Personal history of other complications of pregnancy, childbirth and the puerperium
CPT/HCPCS: 36415; 76801; 76817; 80053; 81001; 84702; 85025; 85610; 85730; 99284

== ENCOUNTER 2024-08-02 14:22 | Outpatient (REF) | payer MEDICAID, SELFPAY ==
--- OUTSIDE RECORDS SUMMARY | 2024-08-02 15:02 | XMS_ITS | Encounter Summary ---
Author Organization [facility] Address [address] [place] [address] Care Team Providers Care Auto Radio Mechanic Name Role Phone Latasha Reilly Primary Care Provider [phone] Encounter Details Date Type Department Care Team (Latest Contact Info) Description 08/02/2024 Travel Social History Tobacco Use Types Packs/Day Years Used Date Smoking Tobacco: Former Cigarettes Q uit: 2021 Smokeless Tobacco: Never Alcohol Use Standard Drinks/Week Comments Not Currently 0 (1 standard drink = 0.6 oz pur e alcohol) Depression Answer Date Recorded Patient Health Questionnaire-9 Score 0 12/13/2022 Housing Stability Answer Date Recorded What is your housing situation today? I have sco[facility]ner 08/01/[address] you li ve. Do you have problems with any of the following? None of the above 08/01/2023 Food Insecurity Answer Date Recorded Within the past 12 months, y ou worried that your food would run out before you got money to buy more: Never True 08/01/2023 Within the past 12 months,th e food you bought just didn't last and you didn't have enough money to get more: Never True Transportation Answer Date Recorded In the past 12 months, has l ack of transportation kept you from medical appts, meetings, work or from getting things needed for daily living? No 08/01/2023 Utilities Answer Date Recorded In the past 12 months, has t he electric, gas, oil or water company threatened to shut off services in your home? No 08/01/2023 Depression Answer Date Recorded Patient Health Questionnaire-2 Score 0 12/13/2022 Internet Access Answer Date Recorded Internet Access Q1 Yes 12/11/2023 Internet Access Q2 Not on file 12/11/2023 Comments Unknown Sex and Gender Information Value Date Recorded Sex Assigned at Female 02/07/2022 10:22 AM EDT Legal Sex Female 10:22 AM EDT Gender Identity Female 02/07/2022 10:22 AM EDT Sexual Orientation Straight 02/07/2022 10 :22 AM EDT documented as of this encounter Plan of Treatment Not on file documented as of this encounter Visit Diagnoses Not on filedocumented in this encounter Additional Health Concerns Assessment Noted Time PHQ-9 Depression Total Score: 0 12/14/19 23 9:56 AM EDT documented as of this encounter Care Teams Auto Radio Mechanic Relationship Specialty Start Date End Date Latasha Reilly ANP [address] [place] [address] PCP - General Family Medicine 02/26/21 documented as of this encounter
--- OUTSIDE RECORDS SUMMARY | 2024-08-02 15:02 | XMS_ITS | Encounter Summary ---
Author Organization [employer] Address [address] [facility] [address] [place] [address] Care Team Providers Care Ship'S Pilot Name Role Phone Latasha Reilly Primary Care Provider Reason for Visit * Reason Onset Date Comments Request For Order(s) 06/13/2023 Encounter Details Date Type Department Care Team ([facility] st Contact Info) Description 06/13/2023 Telephone [facility] MEDICINE [address], [place] [phone] Latasha Reilly ANP [address] [place] [address] Request For Order(s) Social History Tobacco Use Types Packs/Day Years Used Date Smoking Tobacco: Every Day Cigarettes Smokeless Tobacco: Never Alcohol Use Standard Drinks/Week Comments Not Currently 0 (1 standard drink = 0.6 oz pur e alcohol) Depression Answer Date Recorded Patient Health Questionnaire-9 Score 0 12/13/2022 Housing Stability Answer Date Recorded What is your housing situation today? I have scooby conner 02/06/[address] you li ve. Do you have problems with any of the following? None of the above 02/06/2023 Food Insecurity Answer Date Recorded Within the past 12 months, y ou worried that your food would run out before you got money to buy more: Never True 02/06/2023 Within the past 12 months,th e food you bought just didn't last and you didn't have enough money to get more: Never True Transportation Answer Date Recorded In the past 12 months, has l ack of transportation kept you from medical appts, meetings, work or from getting things needed for daily living? No 02/06/2023 Utilities Answer Date Recorded In the past 12 months, has t he electric, gas, oil or water company threatened to shut off services in your home? No 02/06/2023 Depression Answer Date Recorded Patient Health Questionnaire-2 Score 0 12/13/2022 Comments Unknown Sex and Gender Information Value Date Recorded Sex Assigned at Female 02/07/2022 10:22 AM EDT Legal Sex Female 10:22 AM EDT Gender Identity Female 02/07/2022 10:22 AM EDT Sexual Orientation Straight 02/07/2022 10 :22 AM EDT documented as of this encounter Miscellaneous Notes * Telephone Encounter - Deonte Lim - 06/16/2023 10:53 AM EST Tc from pt returning call regarding message prior. * Telephone Encounter - Lanie Deal RN - 06/14/2023 4:30 PM EST TC placed to patient mall plant caretaker, Zuleyka, @ [facility] again. She said the paperwork for patient's pre-op can only be faxed. Told her to fax paperwork to the [employer] nurses at fax # [phone]. She states that the 08/04/23 pre- op appointment may be too soon and that the appointment must be within 30 days of the scheduled surgery for the lab results to be valid. Zuleyka states she will check and see if this pre-op date will work and call us back. TC placed to patient and LM stating that she may need to reschedule her pre-op for further out onceshe has the date of her surgery and that it must be within 30 days and for right now we will leave the 08/03 pre-op in the system. Routing back to Green Team Nurses to check that paperwork from [facility] was received. * Telephone Encounter - Lanie Deal RN - 06/13/2023 5:16 PM EST TC returned to patient regarding message below. Patient states she will be traveling to [place], [place] for a Greek butt lift (BBL) surgery with [facility], Dr. Dennis Nesbitt, @ [phone] in early August. She requests labs and/or a pre-op visit, but is not sure what is required. Scheduled for Pre- Op Visit for 08/04/23 with PCP @ 10:30am. TC placed to Dr. Nesbitt's office at above number for clarification. Transferred to patient's mall plant caretaker, Zuleyka, but was told she couldn't come to the phone and would need to call us back. Left call back number and to please share more details of what is required for pre-op for this patient. Routing back to Green Team Nurses to follow upwith surgeon's office and for appointment notes for 08/03. Tc from pt requesting to get labs done due to an upcoming surgery in August. Please contact pt at [phone] * Telephone Encounter - Frida Bueno - 06/13/2023 8:42 AM EST Tc from pt requesting to get labs done due to an upcoming surgery in August. Please contact pt at [phone] documented in this encounter Plan of Treatment Not on file documented as of this encounter Visit Diagnoses Not on filedocumented in this encounter Additional Health Concerns Assessment Noted Time PHQ-9 Depression Total Score: 0 12/14/19 23 9:56 AM EDT documented as of this encounter Care Teams Ship'S Pilot Relationship Specialty Start Date End Date Latasha Reilly ANP [address] [place] [id number] PCP - General Family Medicine 02/26/21 documented as of this encounter
--- OUTSIDE RECORDS SUMMARY | 2024-08-02 15:02 | XMS_ITS | Clinical Summary ---
Author Organization [facility] Address [address] [place] [address] Phone Care Team Providers Care Costume Shop Coordinator Name Role Phone Unavailable Primary Care Provider Unavailabl e Immunizations Immunization Administration Dates Next Due DTP 06/08/1995, 5,1993,08/07 DTaP 5 03/19/2001,12/09/1999 HPV, Quadrivalent 12/29/2008,06/26/2007,02/13/20 07 Hep B, ped/adol 04/23/2001, 1,1993,08/07,1993 Hib (PRP-T) 10/04/1994,1993,1993 IPV 03/19/2001,1993 Influenza, injectable, trivalent 12/29/2008,08/2006 MMR 03/19/2001,12/09/1999,10/04/1994 Meningococcal Conj (Menactra) MCV4P 02/12/2007 OPV 12/09/1999,10/04/1994,1993 Td (adult) (MBL), 2 Lf tetan us toxoid, PF, adsorbed 12/12/2003 Tdap 12/29/2008 Family History Relation Name Status Comments Father Alive Father: Alive a nd well Maternal Grandfather Alive Materna l grandfather: Migraines Maternal Grandmother Alive Materna l grandmother: Migraines Mother Alive Mother: Asthma Social History Tobacco Use Types Packs/Day Years Used Date Smoking Tobacco: Never Assessed Comments Unknown Sex and Gender Information Value Date Recorded Sex Assigned at Not on file Legal Sex Female 4:29 PM EDT Gender Identity Not on file Sexual Orientation Not on file Plan of Treatment Health Maintenance Due Date Last Done Comments Varicella Vaccines (1 of 2 - 13+ 2-dose series) 2006 DTaP,Tdap,and Td Vaccines (7 - Td or Tdap) 12/29/2018 12/29/2008, 12/12/2003, 03/19/2001, Additional history exists Influenza Vaccines (#1) 2023 12/29/2008, 02/12 COVID-19 Vaccine ( season) 2023 HIB Vaccines Completed 10/04/1994, 11/09, 1993 IPV Vaccines Completed 03/19/2001, 11/10, 10/04/1994, Additional history exists MMR Vaccines Completed 03/19/2001, 11/10, 10/04/1994 Hepatitis B Vaccines Completed 04/23/2001, 03/22/2001, 1993, Additional history exists Meningococcal Vaccine Aged Out 02/12/2007 No shalini elma eligible based on patient's age to complete this topic HPV Vaccines Completed 12/29/2008, 06/08, 02/12/2007 Hepatitis A Vaccines Aged Out No long er eligible based on patient's age to complete this topic Men B Vaccine Aged Out No longer elig ible based on patient's age to complete this topic Pneumococcal Vaccine Aged Out No long er eligible based on patient's age to complete this topic
--- OUTSIDE RECORDS SUMMARY | 2024-08-02 15:02 | XMS_ITS | Encounter Summary ---
Author Organization [employer] Address [address] [facility] [address] [place] [address] Care Team Providers Care Repairer Helper Name Role Phone Latasha Reilly Primary Care Provider [phone] Encounter Details Date Type Department Care Team (Late st Contact Info) Description 11/07/2022 Abstract [facility] MEDICINE [address] [place] [address] Latasha Reilly ANP [address] [place] [address] Social History Tobacco Use Types Packs/Day Years [...] Diagnoses Not on filedocumented in this encounter Care Teams Repairer Helper Relationship Specialty Start Date End Date Latasha Reilly ANP [address] [place] [address] PCP - General Family Medicine 02/26/21 documented as of this encounter
--- OUTSIDE RECORDS SUMMARY | 2024-08-02 15:03 | XMS_ITS | Encounter Summary ---
Author Organization [employer] Address [address] [facility] [address] [place] [address] Care Team Providers Care Case Maker Name Role Phone Latasha Reilly Primary Care Provider [phone] Encounter Details Date Type Department Care Team (Late st Contact Info) Description 08/02/2024 1:45 PM EDT Office Visit [facility] MEDICINE [address] [place], [place] [phone] Latasha Reilly ANP [address] [place], [place] [phone] Mixed anxiety and depressive disorder (Primary Dx); Screening for tuberculosis; Healthcare maintenance Social History Tobacco Use Types Packs/Day Years Used Date Smoking Tobacco: Former Cigarettes Q uit: 2021 Smokeless Tobacco: Never Tobacco Cessation:Counseling Given: Not Answered Alcohol Use Standard Drinks/Week Comments Not Currently 0 (1 standard drink = 0.6 oz pur e alcohol) Depression Answer Date Recorded Patient Health Questionnaire-9 Score 0 12/13/2022 Housing Stability Answer Date Recorded What is your housing situation today? I have scooby conner 08/01/[address] you [...] AM EDT documented as of this encounter Last Filed Vital Signs Vital Sign Reading Time Taken Comments Blood Pressure 136/77 08/02/2024 1:51 PM EDT Pulse 76 08/02/2024 1:51 PM EDT Temperature - - Respiratory Rate 18 08/02/2024 1:51 PM EDT Oxygen Saturation - - Inhaled Oxygen Concentration - - Weight 63.5 kg (140 lb) 08/02/2024 1:51 PM EDT Height 154.9 cm (5' 1 ) 08/02/2024 1:51 PM EDT Body Mass Index 26.45 08/02/2024 1:51 PM EDT documented in this encounter Progress Notes * SATHYA Fairbanks - 08/02/2024 1:45 PM EDT Subjective Patient ID: Maya Tsai is a 29 y.o. female who presents for No chief complaint on file.. HPI Here today for PE She has h/o 2 ectopic pregnancies-one in 2021 and the other in Feb 2024. This was obviously very stressful. Kathrin has been very supportive. She is working with [facility] to get imaging of her fallopian tubes. Would like to be in the next few years. Having anxiety/depression, working w/ therapist q2 weeks. She is living in [facility] in [place] and working as [employer]. Non-smoker Review of Systems Constitutional: Negative for chills and fever. HENT: Negative for sore throat. Respiratory: Negative for cough and shortness of breath. Cardiovascular: Negative for chest pain. Gastrointestinal: Negative for constipation and diarrhea. Endocrine: Negative for polydipsia, polyphagia and polyuria. Genitourinary: Negative for dysuria. Neurological: Negative for weakness. Psychiatric/Behavioral: The patient is nervous/anxious. Objective BP 136/77 (BP Location: Right arm, Patient Position: Sitting, BP Cuff Size: Adult) Pulse 76 Resp 18 Ht 5' 1 (1.549 m) Wt 140 lb (63.5 kg) BMI 26.45 kg/m?? Physical Exam Vitals reviewed. Constitutional: General: She is not in acute distress. Appearance: Normal appearance. She is not ill-appearing. HENT: Head: Normocephalic and atraumatic. Right Ear: Tympanic membrane, ear canal and external ear normal. Left Ear: Tympanic membrane, ear canal and external ear normal. Eyes: Extraocular Movements: Extraocular movements intact. Pupils: Pupils are equal, round, and reactive to light. Cardiovascular: Rate and Rhythm: Normal rate and regular rhythm. Pulmonary: Effort: Pulmonary effort is normal. No accessory muscle usage or respiratory distress. Breath sounds: Normal breath sounds. Abdominal: General: Bowel sounds are normal. There is no distension. Palpations: Abdomen is soft. Tenderness: There is no abdominal tenderness. Musculoskeletal: Right lower leg: No edema. Left lower leg: No edema. Neurological: Mental Status: She is alert and oriented to person, place, and time. Psychiatric: Mood and Affect: Mood normal. Behavior: Behavior normal. Assessment/Plan Diagnoses and all orders for this visit: Mixed anxiety and depressive disorder Stable, following with therapy Screening for tuberculosis - T-SPOT??.TB; Future Healthcare maintenance Paps with [facility] TE[facility] at [facility] Encouraged her to take vitamin if the plan is for or if not using contraception and would be okay getting . Has had 2 ectopic pregnancies 1 in 2021 and 1 in 2023 and is following with RETAIL TEAM MEMBER. We are out of COVID vaccines on the floor and directed patient to pharmacy to receive documented in this encounter Plan of Treatment Scheduled Orders Name Type Priority Associated Diagnoses Orde r Schedule T-SPOT??.TB Lab Routine Screening for tuberculosis Expected: 08/02/2024 (Approximate), Expires: 08/02/2025 documented as of this encounter Visit Diagnoses Diagnosis Mixed anxiety and depressive disorder- Primary Dysthymic disorder Screening for tuberculosis Screening examination for pulmonary tuberculosis Healthcare maintenance documented in this encounter Additional Health Concerns Assessment Noted Time PHQ-9 Depression Total Score: 0 12/14/19 23 9:56 AM EDT documented as of this encounter Care Teams Case Maker Relationship Specialty Start Date End Date Latasha Reilly ANP [address] [place] [address] PCP - General Family Medicine 02/26/21 documented as of this encounter
--- OUTSIDE RECORDS SUMMARY | 2024-08-02 15:03 | XMS_ITS | Clinical Summary ---
Author Organization [facility] Address [address] [facility] [place] [address] Care Team Providers Care Waiter Waitress Name Role Phone Latasha Reilly Primary Care Provider [phone] Allergies No known active allergies Medications 27-1 MG tablet TAKE 1 TABLET BY MOUTH EVERY DAY FOR 90 DAYS 11/29/2022 Active Active Problems Problem Noted Date Diagnosed Date Mixed anxiety and depressive disorder 09/10/2022 Atypical squamous cells of u ndetermined significance on cytologic smear of cervix (ASC-US) 07/11/2017 Resolved Problems Problem Noted Date Diagnosed Date Resolved Date Substance abuse 05/02/2017 08/01/2023 Encounters Date Type Department Care Team Description 08/02/2024 1:45 PM EDT Office Visit [facility] [address] [place] [phone] Latasha Reilly ANP Mixed anxiety and depressive disorder (Primary Dx); Screening for tuberculosis; Healthcare maintenance 08/02/2024 Travel 07/25/[address] [facility] [address] [place] [phone] Latasha Reilly ANP Pre-visit Planning (SDOH screening negative and Tobacco screening negative) 07/15/[address] [facility] [address] [place] [phone] Latasha Reilly ANP Lab Orders 06/21/2024 Population Health Risk Score [facility] (C3) Department [address] [id number] Provider, Population Health Generic from Last 3 Months Immunizations Name Administration Dates Next Due DTP 06/08/1995, 5,1993,08/07 DTaP, 5 pertussis antigens 03/19/2001,12/09/1999 HPV 9-Valent 06/07/2016 HPV, Quadrivalent 02/04/2014, 9,06/26/2007,02/12 Hep B, Adolescent or Pediatric 2,03/22/2001,1993,08/07,1993 Hep B, adult 11/06/2018,04/06/2018,02/09/2018 Hib (PRP-T) 10/04/1994,1993,1993 INFLUENZA INJECTABLE QUADRIV ALANT CCIIV4 MDCK Multi-dose vial 01/08/2021 IPV 03/19/2001,1993 Influenza injectable quadriv alent IIV4 with preservative 02/05/2016 Influenza injectable quadriv alent preservative free 01/28/2022,02/12/2020 Influenza, IIV3, injectable 02/04/2014, 9,02/12/2007 Influenza, Split (incl. dev fied surface antigen) 04/25/2013 MMR 03/19/2001,12/09/1999,10/04/1994 Meningococcal MCV4P ACYW-135 02/12/2007 Moderna Covid-19 Vaccine 6+ Bivalent 03/29/2022 OPV, Trivalent 12/09/1999,10/04/1994,1993 Pfizer Covid-19 Vaccine 12+ ashley-sucrose (Currie Cap) 05/18/2021 Pneumococcal Conjugate PCV 13 09/30/2013 Pneumococcal, Unspecified 09/30/2013 TD (adult), 2 Lf tetanus tox oid, preservative free, adsorbed 12/12/2003 Tdap 12/13/2022,09/30/2013,12/29/2008 Social History Tobacco Use Types Packs/Day Years [...] Orientation Straight 02/07/2022 10 :22 AM EDT Last Filed Vital Signs Vital Sign Reading Time Taken Comments Blood Pressure 136/77 08/02/2024 1:51 PM EDT Pulse 76 08/02/2024 1:51 PM EDT Temperature 36.1 ??C (97 ??F) 08/01/2023 10:45 AM EDT Respiratory Rate 18 08/02/2024 1:51 PM EDT Oxygen Saturation - - Inhaled Oxygen Concentration - - Weight 63.5 kg (140 lb) 08/02/2024 1:51 PM EDT Height 154.9 cm (5' 1 ) 08/02/2024 1:51 PM EDT Body Mass Index 26.45 08/02/2024 1:51 PM EDT Plan of Treatment Health Maintenance Due Date Last Done Comments Family Planning (PISQ) 2008 COVID-19 Vaccine ( season) 2023 07/01/2022, 03/29/2022, 05/18/2021, Additional history exists Influenza Vaccine (#1) 2023 , 01/08/2021, 02/12/2020, Additional history exists Depression Screening 12/14/2023 12/13/2022, 12/14/19 Pap Smear 09/20/2024 09/20/2021 SDOH Screening 07/25/2025 07/25/2024 Alcohol/Substance Use Screening 08/02/2025 08/02/2024 Tobacco Screening 08/02/2025 08/02/2024 Cervical Cancer Screening 09/20/2026 HPV/Cotest 09/20/2026 09/20/2021, 10/26/2018 DTaP/Tdap/Td Vaccines (9 - Td or Tdap) 12/13/2032 12/13/2022, 09/30/2013, 12/29/2008, Additional history exists Zoster Vaccines (1 of 2) 2043 RSV Patients and Patients Aged 60 years or older (1 - 1-dose 75+ series) 2068 HIB Vaccines Completed 10/04/1994, 11/09, 1993 IPV Vaccines Completed 03/19/2001, 11/10, 10/04/1994, Additional history exists Meningococcal Vaccine Aged Out 02/12/2007 No shalini elma eligible based on patient's age to complete this topic Pneumococcal Vaccine: Pediatrics (0 to 5 Years) and At-Risk Patients (6 to 49) Years) Aged Out 09/30/2013, 09/30/2013 No longer eligibl e based on patient's age to complete this topic HPV Vaccines Completed 06/07/2016, 01/09, 12/29/2008, Additional history exists Hepatitis B Vaccines Completed 11/06/2018, 04/06/2018, 02/09/2018, Additional history exists Hepatitis C Screening Completed 11/23/2021 HIV Screening Completed 08/01/2023, 11/08, 11/09/2021, Additional history exists Hepatitis A Vaccines Aged Out No long er eligible based on patient's age to complete this topic RSV under 20 months Aged Out No longe r eligible based on patient's age to complete this topic Rotavirus Vaccines Aged Out No longer eligible based on patient's age to complete this topic Procedures Procedure Name Priority Date/Time Associated Diagnosis Comments HIV 1/2 ANTIGEN/ANTIBODY, FOURTH GENERATION W/RFL Routine 08/01/2023 1:38 PM EDT ZZZ HISTORICAL HEPATITIS C AB W/REFL TO HCV RNA, QN, PCR Routine 11/23/2021 2:48 PM EDT THINPREP IMAGING PAP AND HPV MRNA E6/E7, WITH CT/NG, TRICHOMONAS Routine 09/20/2021 11:27 AM EDT from Last 3 Months or Most Recently Relevant to Health Maintenance Results * HIV-1/2 Antigen and Antibodies, Fourth Generation, with Reflexes (08/01/2023 1:38 PM EDT) HIV AB/AG Nonreactive Nonreactive [facility] Comment:HIV-1 p24 Ag and/or HIV-1/HIV-2 Ab not detected.A test result that is nonreactive does not exclude thepossibility of exposure to or infection with HIV-1 and/orHIV-2. Nonreactive results in this assay for individualswith prior exposure to HIV-1 and/or HIV-2 may be due toantigen and antibody levels that are below the limit ofdetection of this assay.The [email or web address] HIV Ag/Ab Combo assay result andsupplemental assay results should be interpreted inconjunction with the patient's clinical presentation,history and other laboratory results. If the results areinconsistent with clinical evidence, additional testing issuggested to confirm the result. 08/01/2023 1:38 PM EDT 08/01/2023 4:05 PM EDT us David Salinas MD LAB BLOOD ORDERABLES Final Resul t [facility] [address] [place] [phone] * HEPATITIS C AB W/REFL TO HCV RNA, QN, PCR (11/23/2021 2:48 PM EDT) HEPATITIS C ANTIBODY NON-REACT JESSICA NON-REACT JESSICA [facility] INDEX 0.11 <1.00 [facility] Comment: ?? HCV antibody was non-reactive. There is no laboratory ?? evidence of HCV infection. ?? In most cases, no further action is required. However, if recent HCV exposure is suspected, a test for HCV RNA (test code 87878) is suggested. ?? For additional information please refer to http://SupplyHog.Bluechilli/faq/ZSL08z2 (This link is being provided for informational/ educational purposes only.) ?? 11/23/2021 2:48 PM EDT us Jessica Lopes NP HISTORICAL/NON ORDERABLE LABS F inal Result [facility] [address] [place] [address], * (ABNORMAL) THINPREP TIS PAP AND HPV mRNA E6/E7, CT/NG, TRICH (09/20/2021 11:27 AM EDT) Chlamydia trachomatis RNA, TMA, Urogenital NOT DETECTED NOT DETECTED [facility] Clinical Information: ASCUS HPV + 10/2018/MIREYA COLPO [facility] COMMENT SEE COMMENT [facility] Comment: The analytical performance characteristics of this assay, when used to test SurePath(TM) specimens have been determined by [employer]. The modifications have not been cleared or approved by the FDA. This assay has been validated pursuant to the CLIA regulations and is used for clinical purposes. ?? For additional information, please refer to https://SupplyHog.Bluechilli/faq/JTD742 (This link is being provided for information/ educational purposes only.) ?? COMMENT SEE COMMENT [facility] Comment: EXPLANATORY NOTE: ? The Pap is a screening test for cervical cancer. It is ?? not a diagnostic test and is subject to false negative ?? and false positive results. It is most reliable when a ?? satisfactory sample, regularly obtained, is submitted ?? with relevant clinical findings and history, and when ?? the Pap result is evaluated along with historic and ?? current clinical information. ?? COMMENT: This Pap test has been evaluated with computer assisted technology. [facility] Teacher Home Therapy: SEE COMMENT [facility] Comment: YP, CT(ASCP) CT screening location: [address] ??[address] General Categorization: EPITHELIAL CELL ABNORMALITY(A) [facility] HPV nRNA E6/E7 Detected(A) Not Detected [facility] Comment: Methodology: Woodworking Machine Setter-Mediated Amplification This assay detects E6/E7 viral messenger RNA (mRNA) from 14 high-risk HPV types (16,18,31,33,35,39,45,51,52,56,58,59,66,68). ? Cervical sources are required for HPV testing. If a vaginal source from a patient who has had a total hysterectomy with removal of cervix was ?? submitted, please contact the testing laboratory for alternative testing options. ?? For additional information, please refer to http://SupplyHog.Bluechilli/faq/AZS792u5 (This link if provided for information/ educational purposes only.) Infection Shift in vaginal lisa suggestive of bacterial vaginosis. [facility] Interpretation/Res ult: Atypical Squamous Cells of Undetermined Significance (ASC-US)(A) [facility] LMP: 09/16/2021 [facility] Neisseria gonorrhoeae RNA, TMA, Urogenital NOT DETECTED NOT DETECTED [facility] PATHOLOGIST: SEE COMMENT [facility] Comment: Fawn Harp MD, PhD, Board Certified in Anatomic and Clinical Pathology (electronic signature) Consulting Pathologist [facility] [address] [place] [address] Prev. BX: NONE [facility]IVEN [facility] Prev. PAP: NONE [facility]IVEN [facility] SOURCE: None given [facility] Statement Of Adequacy: SEE COMMENT [facility] Comment: Satisfactory for evaluation. Endocervical/transformation zone component present. Trichomonas vaginalis, QL, TMA, PAP Vial NOT DETECTED NOT DETECTED [facility] Comment: The analytical performance characteristics of this assay have been determined by [employer]. The modifications have not been cleared or approved by the FDA. This assay has been validated pursuant to the CLIA regulations and is used for clinical purposes. ?? For additional information, please refer to http://education.Bluechilli/ faq/Trichomonastma (This link is being provided for information/ educational purposes only.) ?? 09/20/2021 11:2 7 AM EDT us Farnaz Wood CNM LAB PATHOLOGY ORDERABLES Final Result [facility] [address] from Last 3 Months or Most Recently Relevant to Health Maintenance Insurance [facility] C3 HSN PARTIAL Care Teams Waiter Waitress Relationship Specialty Start Date End Date Latasha Reilly ANP [address] [place] [address] [place] [phone] PCP - General Family Medicine 02/26/21
[2024-08-05 18:28] LABS: TS Negative Control Passed; TS Panel A 1; TS Panel B 0; TS Positive Control Passed; TSpotTB Negative (Negative)
== END 2024-08-02 14:23 | disposition home or self-care (01) ==
LOC: HO.HHCL 14:22
PROVIDERS: Visit Provider Nurse Practitioner Primary Care
DX: Z11.1 Encounter for screening for respiratory tuberculosis (principal)
CPT/HCPCS: 36415; 86481